=== PATIENT | female | born 2000 | race Caucasian/White ===

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

== ENCOUNTER 2020-01-07 17:40 | Emergency (ER) | payer SELFPAY ==
[2020-01-07 17:41] VITALS: BP 116/72; PULSE 87; RESP 16; TEMP 36.7; O2SAT 99; BMI 27.3
--- NOTE | 2020-01-07 18:40 | RAD_ITS ---
STUDY: X-RAY CHEST REASON FOR EXAM: Female, 19 years old. sob with cough TECHNIQUE: Single AP portable view of the chest. COMPARISON: 08/14/2018. FINDINGS: The lungs are clear and expanded. There is no demonstrated pleural abnormality. Normal size heart. Normal mediastinum and ewa. Normal visualized pulmonary arteries. Normal visualized aortic arch and descending thoracic aorta. Normal visualized thoracic spine. Normal visualized ribs, clavicles, and shoulders. There is no demonstrated abnormality of the visualized soft tissue structures of the upper abdomen. RAD/Chest 1 View (Portable) IMPRESSION: Normal x-ray examination of the chest. Electronically Signed: Chato Horvath MD at 19:55 EDT , Service support ,
--- NOTE | 2020-01-07 18:41 | ED.VIS.DYS ---
History of Present Illness Chief Complaint: Shortness of Breath Informant: Patient Onset: Days - 3 Activity at onset: Exertion Timing: Continuous, Waxes and wanes Quality: Dyspnea on exertion, Wheezing Current Severity: Mild Maximum Severity: Moderate Worsened by: Coughing, Exertion Relieved by: Rest. Not Relieved By: Albuterol Associated Symptoms: Clear sputum, Cough. Negative for: Chills, Fever Chest Pain: Tightness Narrative: Patient has asthma, she feels like she has had URI symptoms, minor amount of clear sputum, some wheezing. Denies any fevers or chills, myalgias, headaches, sore throat, earache. She has had some runny nose and congestion with this. No GI symptoms. Patient presents during the national coronavirus emergency declaration/pandemic. She denies any known contact with anyone infected with COVID-19. She denies traveling out of the immediate area recently. - Past Medical History (1) Asthma Status: Chronic Past Medical History - Allergies and Home Meds Allergies/Adverse Reactions: Allergies ibuprofen [From Advil] Adverse Reaction (Verified 01/07/20 17:44) Swelling Primary Care Physician: Adria Bartlett MD [Primary Care Provider] - Surgical History: no surgical history Smoking Status: Current every day smoker Review of Systems General: Denies: Chills, Fever, Sweats Eyes: Denies: Visual changes - bilaterally, Diplopia ENT: Reports: Rhinorrhea. Denies: Bilateral ear pain, Sore throat Cardiovascular: Denies: Chest pain, Palpitations Respiratory: Reports: Dyspnea, Cough, Sputum, Dyspnea on exertion. Denies: Orthopnea Gastrointestinal: Denies: Abdominal pain, Nausea, Vomiting, Diarrhea, Melena, Hematochezia Genitourinary: Denies: Dysuria, Hematuria, Frequency Musculoskeletal: Denies: Myalgias, Arthralgias, Neck pain, Back pain, Swelling, Extremity Pain Skin: Denies: Rash, Wounds Neurological: Denies: Headache, Weakness, Numbness Physical Exam Vital Signs/Narrative: Vital Signs Temp Pulse Resp BP Pulse Ox 01/07/20 17:41 98.0 F 87 16 116/72 99 Inital Vital Signs reviewed: Yes General: Well nourished, Well developed, No Acute Distress Head: Normocephalic, Atraumatic Eyes: Perrl, EOMI ENT: Moist mucous membranes, No rhinorrhea - No purulent discharge Neck: Supple, Nontender, No lymphadenopathy Cardiovascular: Regular rate, Regular rhythm, No murmurs Respiratory: No distress, CTA bilaterally - But has some mild audible wheezes when listened to externally without stethoscope. No stridor., Chest nontender Abdomen: Soft, Nontender, Nondistended, Normal bowel sounds Back: Nontender, Normal Inspection Extremities: Nontender, No edema. Negative for: Calf Tenderness Skin: Normal color, No rash, No Trauma Neurological: Alert, Oriented x3, Cranial nerves II-XII grossly intact, Normal Strength, Normal Sensation, Normal Gait Psychological: Normal affect, Normal Mood Diagnostic/Tx/Re-eval Chest X-Ray - ED: 1 View, Read by ED Physician, Normal, Heart, Lungs, Mediastinum, Bony Structures, No Acute Disease Treatment - Dyspnea: Steroid - Kenalog 40 mg IM - Medical Decision Making Patient vital signs are normal, her chest x-ray to my interpretation is normal. I sent an outpatient swab for COVID-19, given that she presents during the national coronavirus emergency declaration/pandemic, and since spread has been widespread. She has no specific risk factors for charles it given the history. She is told to quarantine until the results come back. She has albuterol at home to use as needed, hopefully the steroids will help, but I do not think she needs any emergent treatments now. She is comfortable with that plan. ED Disposition - Plan for ED Patient: Disposition: Home or Assisted Living Diagnosis: Viral URI, Asthma exacerbation Instructions: ED REACTIVE AIRWAY DISEASE Adult, ED URI Viral Referrals: Adria Bartlett MD [Primary Care Provider] - 1 Week if not improving Additional Instructions: You were tested for COVID-19, however it is sent to an offsite laboratory, and will likely take 3-5 days to come back. When the results return you should receive a call from the emergency department. Reference the pamphlet including with your discharge papers for information on setting up an online portal account to check the results yourself.
[2020-01-07] MEDS: Triamcinolone Acetonide 40 MG/ML Vial IM (19:52)
[2020-01-07 19:55] VITALS: BP 126/84; PULSE 69; RESP 15; O2SAT 98; O2SAT 99
== END 2020-01-07 19:56 | disposition home or self-care (01) ==
PROVIDERS: Emergency Provider Emergency Medicine; PCP Pediatrics
DX: J06.9 Acute upper respiratory infection, unspecified (principal); J45.901 Unspecified asthma with (acute) exacerbation; F17.200 Nicotine dependence, unspecified, uncomplicated
CPT/HCPCS: 71045; 87635; 94799; 96372; 99282; U0003

== ENCOUNTER 2020-07-24 18:53 | Emergency (ER) | payer MEDICAID, SELFPAY ==
[2020-07-24 18:55] VITALS: BP 125/75; PULSE 98; RESP 16; TEMP 36.9; O2SAT 100; BMI 26.2
--- NOTE | 2020-07-24 20:39 | ED.VIS.BACK ---
History of Present Illness Chief Complaint: Dizziness Informant: Patient Onset: Weeks Context: Sudden Onset Chronic pain exacerbated by: Estimation of prior back pain Injury: Lifting, Twisting, Bending, Repetitive Motion Timing: Continuous Quality: Dull, Aching Location: Thoracic, Lumbar Current Severity: Moderate Maximum Severity: Severe Worsened by: improves with: Movement, Ambulation, Bending, Lifting Relieved by: Nothing Associated Symptoms: - - She denies bowel or bladder dysfunction. She denies saddle paresthesia or anesthesia. She denies radiation to her right or left lower extremity. She denies difficulty walking. She denies knee buckling going up or down steps. Prior similar symptoms: Yes Recent Illness/Hospitalization: No - Past Medical History (1) No significant past medical history Status: Acute (2) Asthma Status: Chronic Past Medical History - Allergies and Home Meds Allergies/Adverse Reactions: Allergies ibuprofen [From Advil] Adverse Reaction (Verified 07/24/20 18:54) Swelling Primary Care Physician: Adria Bartlett MD [Primary Care Provider] - Prior records reviewed: Yes Surgical History: no surgical history Lives: Alone, With Family Smoking Status: Current every day smoker Alcohol: None Drugs: None Review of Systems General: Denies: Chills, Fever, Malaise Eyes: Denies: Blurred vision - left, Blurred Vision - bilaterally ENT: Denies: Rhinorrhea, Sore throat Cardiovascular: Denies: Chest pain, Palpitations Respiratory: Denies: Dyspnea, Cough, Dyspnea on exertion Gastrointestinal: Reports: Nausea. Denies: Abdominal pain, Vomiting, Diarrhea, Constipation, Melena, Hematochezia Genitourinary: Denies: Dysuria, Hematuria, Frequency Musculoskeletal: Reports: Back pain. Denies: Myalgias, Arthralgias, Neck pain, Swelling, Extremity Pain Skin: Reports: - - He has bruises to extremities and lower back and evidence of prior chest trauma. Denies: Rash Neurological: Denies: Headache, Weakness Endocrine: Denies: Polyuria, Polydipsia Hematologic: Denies: Easy bruising, Easy bleeding Physical Exam Vital Signs/Narrative: Vital Signs Temp Pulse Resp BP Pulse Ox 07/24/20 18:55 98.4 F 98 16 125/75 H 100 Inital Vital Signs reviewed: Yes General: Well nourished, Well developed Head: Normocephalic, Atraumatic Eyes: Perrl, EOMI ENT: Moist mucous membranes, No rhinorrhea Neck: Supple, Nontender Cardiovascular: Regular rate, Regular rhythm, No murmurs Respiratory: No distress, CTA bilaterally, Chest nontender Abdomen: Soft, Nontender, Nondistended, Normal bowel sounds Back: Normal Inspection, Nontender, - - Pain the entire spine. Extremeties: Nontender, No edema Skin: Normal color, No rash Neuro: Alert, Oriented, Normal Strength, Normal Sensation, Normal DTR, Normal Gait, - - HL is intact. 5/5 strength with plantar and dorsiflexion of the feet. Hip flexors are intact. Reflexes: Right Patellar, Right Achilles, Left Patellar, Left Achilles, - - Flexes are 1+.. Negative for: Right Clonus, Right Babinski, Left Clonus, Left Babinski Psychological: Normal affect Diagnostic/Tx/Re-eval - Medical Decision Making IV Toradol was ordered. However she reports swelling to ibuprofen. Therefore will treat with p.o. Tylenol. Because of patient's allergies she was treated with Tylenol. She was reassessed at 2230. She had to be awakened from sleep. Her back pain is improved. ED Disposition - Plan for ED Patient: Disposition: Home or Assisted Living Diagnosis: Strain of back Instructions: ED Back Sprain/Strain Referrals: Adira Bartlett MD [Primary Care Provider] - Additional Instructions: 1. Apply ice 20 to 30 minutes per application 6-8 times a day. 2. Because you are allergic to ibuprofen take Tylenol every 4-6 hours.
[2020-07-24] MEDS: Acetaminophen 325 MG Tablet 650 MG PO (20:55)
[2020-07-24 22:47] VITALS: PULSE 72; RESP 16; O2SAT 100
== END 2020-07-24 22:47 | disposition home or self-care (01) ==
PROVIDERS: Emergency Provider Emergency Medicine; PCP Pediatrics
DX: S39.012A Strain of muscle, fascia and tendon of lower back, initial encounter (principal); X50.1XXA Overexertion from prolonged static or awkward postures, initial encounter; Y93.9 Activity, unspecified; Y92.9 Unspecified place or not applicable; J45.909 Unspecified asthma, uncomplicated; F17.200 Nicotine dependence, unspecified, uncomplicated
CPT/HCPCS: 99283

== ENCOUNTER 2020-09-05 22:14 | Emergency (ER) | payer OTHER, MEDICAID, SELFPAY ==
[2020-09-05 22:15] VITALS: BP 147/97; PULSE 104; RESP 16; TEMP 35.7; O2SAT 100; BMI 26.6
--- NOTE | 2020-09-05 22:51 | RAD_ITS ---
STUDY: X-RAY - LEFT SHOULDER REASON FOR EXAM: Female, 20 years old. injury TECHNIQUE: 4 view(s) of the shoulder. COMPARISON: None. FINDINGS: Normal glenohumeral articulation. Normal acromioclavicular joint. Normal acromion. Intact clavicle. Intact scapula Normal humeral head and visualized proximal humerus. The soft tissue structures are unremarkable. Normal visualized pulmonary apex. RAD/Shoulder min 2 Views IMPRESSION: Normal x-ray examination of the shoulder. Electronically Signed: Ciarra Ackerman MD at 23:37 EDT , Service support ,
--- NOTE | 2020-09-05 22:51 | ED.VIS.INJ ---
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 She states as a result she injured her right side/low back. She denies any other injury, but states that she recently just got back to work after recovering from a different injury to her neck and upper back, now she feels like she is having an exacerbation of that same pain as the injury she describes in her left periscapular area. She denies any numbness or tingling or weakness. She was able to walk. She denies hitting her head or losing consciousness. She denies any chest or abdominal pain or shortness of breath. She denies any pleuritic symptoms. She denies any wounds. - Past Medical History (1) Asthma Status: Chronic Past Medical History - Allergies and Home Meds Allergies/Adverse Reactions: Allergies ibuprofen [From Advil] Adverse Reaction (Verified 09/05/20 22:15) Swelling Primary Care Physician: [facility] [GROUP OF PHYSICIANS] - (1-2 days) Adria Bartlett MD [Primary Care Provider] - Surgical History: no surgical history Smoking Status: Current every day smoker Review of Systems General: Denies: Chills, Fever, Sweats Eyes: Denies: Visual changes - bilaterally, Diplopia ENT: Denies: Rhinorrhea, Sore throat Cardiovascular: Denies: Chest pain, Palpitations Respiratory: Denies: Dyspnea, Cough, Dyspnea on exertion Gastrointestinal: Denies: Abdominal pain, Nausea, Vomiting, Diarrhea, Melena, Hematochezia Genitourinary: Denies: Dysuria, Hematuria, Frequency Musculoskeletal: Reports: Back pain. Denies: Neck pain, Swelling, Extremity Pain Skin: Denies: Rash, Wounds Neurological: Denies: Headache, Weakness, Numbness Physical Exam Vital Signs/Narrative: Vital Signs Temp Pulse Resp BP Pulse Ox 09/05/20 22:15 96.3 F L 104 H 16 147/97 H 100 Inital Vital Signs reviewed: Yes General: Well nourished, Well developed, - - well-appearing, nad Head: Normocephalic, Atraumatic Eyes: Perrl, EOMI ENT: TM's clear, No hemotympanum or drainage, No trauma, - - neg Battles bilat. Negative for: Otorrhea, Nasal trauma Neck: Nontender, Full ROM, - - Old contusions nontender Cardiovascular: Regular rate, Regular rhythm, No murmurs. Negative for: Tachycardia Respiratory: No distress, CTA bilaterally - w/ equal BS bilat, Chest nontender Abdomen: Soft, Nontender, Nondistended, Normal bowel sounds Back: Paraspinal Tenderness - right upper lumbar in paraspinal musculature including lower-most short ribs; left medial border of scapula; no other areas of tenderness, no contusions/hematomas or any other wound/sign of objective trauma.. Negative for: Spinal Tenderness Extremeties: Atraumatic with full range of motion throughout all extremities including left shoulder Skin: Normal color, No rash, No Trauma Neurological: Alert, Oriented x3, Cranial nerves II-XII grossly intact, Normal Strength, Normal Sensation, Normal Gait, - - Does not clinically seem intoxicated or under influence of substance Psychological: Normal affect, Normal Mood Diagnostic/Tx/Re-eval Clinical Impression(s) from Imaging Studies Shoulder X-Ray 09/05/20 22:51 IMPRESSION: Normal x-ray examination of the shoulder. Electronically Signed: Ciarra Ackerman MD at 23:37 EDT , Service support , Ribs X-Ray 09/05/20 23:00 IMPRESSION: Normal x-ray examination of the ribs. Electronically Signed: Ciarra Ackerman MD at 23:37 EDT , Service support , - Medical Decision Making On my interpretation, 4 view right rib x-ray series and 4 view left shoulder x-ray series are both negative for any acute injury. Patient has an allergy to ibuprofen, I do not think she has any major injury that needs narcotics so she was given Tylenol and appropriate work restrictions with [facility] follow-up. ED Disposition - Plan for ED Patient: Disposition: Home or Assisted Living Diagnosis: Back contusion Instructions: ED Back Contusion Referrals: Adria Bartlett MD [Primary Care Provider] - [facility] [GROUP OF PHYSICIANS] - (1-2 days) Additional Instructions: Tylenol as needed for pain, may also apply ice to affected areas if needed
[2020-09-05] MEDS: Acetaminophen 500 MG Tablet 1000 MG PO (22:56)
--- NOTE | 2020-09-05 23:00 | RAD_ITS ---
STUDY: X-RAY - UNILATERAL RIBS ( RIGHT ) REASON FOR EXAM: Female, 20 years old. injury TECHNIQUE: 4 view(s) of the ribs. COMPARISON: None. FINDINGS: Normal visualized ribs without a demonstrated fracture. The visualized lung is clear and expanded. RAD/Ribs Unil 2V No CXR IMPRESSION: Normal x-ray examination of the ribs. Electronically Signed: Ciarra Ackerman MD at 23:37 EDT , Service support ,
[2020-09-05 23:46] VITALS: BP 124/87; PULSE 80; RESP 16; TEMP 36.6; O2SAT 98
== END 2020-09-06 00:02 | disposition home or self-care (01) ==
PROVIDERS: Emergency Provider Emergency Medicine; PCP Pediatrics
DX: S30.0XXA Contusion of lower back and pelvis, initial encounter (principal); M25.512 Pain in left shoulder; W31.83XA Contact with special construction vehicle in stationary use, initial encounter; Y92.9 Unspecified place or not applicable; J45.909 Unspecified asthma, uncomplicated; F17.200 Nicotine dependence, unspecified, uncomplicated
CPT/HCPCS: 71100; 73030; 99283

== ENCOUNTER 2020-09-13 16:28 | Emergency (ER) | payer MEDICAID, SELFPAY ==
[2020-09-08 10:28] VITALS: BMI 26.6
[2020-09-13 16:29] VITALS: BP 128/108; PULSE 94; RESP 18; TEMP 36.5; O2SAT 100; BMI 26.6
--- NOTE | 2020-09-13 16:48 | ED.VIS.BACK ---
History of Present Illness Chief Complaint: Back Informant: Patient Onset: Days Context: Sudden Onset Injury: Work Related - States she was seen a week ago. She states this is a work-related injury. Currently was hit by a tow motor. Timing: Continuous Quality: Dull, Aching, - - Very poor informant. Very difficult for her to say nothing specific. Location: Thoracic Current Severity: Pain unable to quantitate Maximum Severity: Severe Worsened by: improves with: Movement, Bending, Lifting Relieved by: Nothing Associated Symptoms: - - Patient denies paresthesia, anesthesia motors. She denies shortness of breath or pleuritic pain. She denies neck pain. She denies headache. Narrative: Chart from prior visit was reviewed. At that time she complained of right low back pain and left scapular pain. She is now complaining of mid bilateral thoracic pain. She states any type of movement makes it worse. She states she follow-up with her primary care doctor states he could not help her and referred her back to the emergency department. She did not follow-up with [facility]. She has no other complaints other than back pain. She states she cannot work. Prior similar symptoms: Yes Recent Illness/Hospitalization: Yes - Past Medical History (1) Asthma Status: Chronic Past Medical History - Allergies and Home Meds Allergies/Adverse Reactions: Allergies ibuprofen [From Advil] Adverse Reaction (Verified 09/13/20 16:28) Swelling Primary Care Physician: Adria Bartlett MD [Primary Care Provider] - Prior records reviewed: Yes Surgical History: no surgical history Lives: Alone Smoking Status: Current every day smoker Alcohol: Rare Drugs: None Review of Systems General: Denies: Chills, Fever, Malaise, Subjective, Sweats Eyes: Denies: Visual changes - bilaterally, Blurred Vision - bilaterally Cardiovascular: Denies: Chest pain, Palpitations Respiratory: Denies: Dyspnea, Dyspnea on exertion Gastrointestinal: Denies: Abdominal pain, Nausea, Vomiting Genitourinary: Denies: Dysuria, Hematuria, Frequency Musculoskeletal: Reports: Back pain. Denies: Myalgias, Arthralgias, Neck pain, Swelling, Extremity Pain Skin: Denies: Rash, Wounds Neurological: Denies: Weakness, Parasthesia, Numbness Hematologic: Denies: Easy bruising, Easy bleeding Physical Exam Vital Signs/Narrative: Vital Signs Temp Pulse Resp BP Pulse Ox 09/13/20 16:29 97.7 F L 94 18 128/108 H 100 Inital Vital Signs reviewed: Yes General: Well nourished, Well developed, Unkempt Head: Normocephalic, Atraumatic Eyes: Perrl, EOMI. Negative for: Pale conjunctiva, Scleral icterus Neck: Supple, Nontender, No lymphadenopathy, No JVD Cardiovascular: Regular rate, Regular rhythm, No murmurs, Normal S1, Normal S2 Respiratory: No distress, CTA bilaterally, Chest nontender Abdomen: Soft, Nontender, Nondistended, Normal bowel sounds, No masses Back: Normal Inspection, Paraspinal Tenderness. Negative for: Nontender, Spinal tenderness Extremeties: Nontender, No edema, Symmetric Skin: Normal color, No rash Neuro: Alert, Oriented, Normal Strength, Normal Sensation, Normal DTR, Normal Gait, Normal Reflexes Psychological: Depressed Diagnostic/Tx/Re-eval - Medical Decision Making Has muscular pain. She was treated with NSAIDs she has no contraindication. [facility] and [facility]. Images were performed on initial visit. Images were reviewed and agree they are negative. ED Disposition - Plan for ED Patient: Disposition: Home or Assisted Living Diagnosis: Dorsal back pain, Strain of thoracic back region Instructions: ED Back Pain (Acute or Chronic) Referrals: Adria Bartlett MD [Primary Care Provider] - [facility] [place] [GROUP OF PHYSICIANS] - Additional Instructions: You are allergic to ibuprofen your options for pain management are Tylenol and ice. Heat may make your pain worse.
== END 2020-09-13 17:04 | disposition home or self-care (01) ==
LOC: ED 17:02
PROVIDERS: Emergency Provider Emergency Medicine; PCP Pediatrics
DX: S29.012A Strain of muscle and tendon of back wall of thorax, initial encounter (principal); X58.XXXA Exposure to other specified factors, initial encounter; Y93.9 Activity, unspecified; Y92.9 Unspecified place or not applicable; J45.909 Unspecified asthma, uncomplicated; F17.200 Nicotine dependence, unspecified, uncomplicated
CPT/HCPCS: 99282

== ENCOUNTER 2020-09-28 16:39 | Emergency (ER) | payer MEDICAID, SELFPAY ==
[2020-09-28 16:40] VITALS: BP 159/114; PULSE 103; RESP 16; TEMP 36.9; O2SAT 99; BMI 26.6
--- NOTE | 2020-09-28 16:57 | ED.VIS.GI ---
HPI HPI - GI History of Present Illness Chief Complaint: GI Bleed Informant: patient Abdominal Pain/Flank Pain Onset: Days (Onset September 26) Context: Sudden Onset Timing: Continuous Quality: Aching Location: - (Anus) Current Severity: Mild Maximum Severity: Severe Worsened by: - (Attempt at bowel movement and touch) Relieved by: Nothing Nausea/Vomiting/Emesis GI Symptom: Negative for Nausea and Vomiting Diarrhea/Melena/Hematochezia GI Symptom: Positive for Hematochezia (Bright red blood with attempted bowel movement and on); Negative for Diarrhea and Melena Onset: Days Stool Quality: Positive for BRB per rectum Severity: Moderate Associated Symptoms Associated Symptoms: Negative for Dysuria, Frequency and Hematuria Narrative Narrative: Is a 20-year-old female who presents with constipation, bright red blood per rectum and rectal pain. She states she has a very tender lump when she wipes. She has noted the blood for 2 to 3 days and the lump for 2 days to 24 hours. Has not had a bowel movement in 3 days. She denies nausea or vomiting. She denies abdominal surgery. She denies history of endometriosis or ovarian cyst. She denies urologic symptoms. She denies ill contacts. She denies fever, chills or night sweats. Prior similar symptoms: Yes Recent Illness/Hospitalization: No PFSH PFSH Medical History (Updated 09/28/20 @ 17:[address] Jim Rivas MD) Shoulder pain Home Medications cyclobenzaprine 10 mg tablet 10 mg PO HS PRN #14 tablet 09/15/20 [Rx Last Taken Unknown] methylprednisolone 4 mg tablets in a dose pack See Rx Instructions PO PER PKG DIR #21 tablet 09/15/20 [Rx Last Taken Unknown] Allergy/AdvReac Type Severity Reaction Status Date / Time ibuprofen [From Advil] AdvReac Swelling Verified 09/15/20 08:10 Family History Mother Asthma Diabetes Father Heart disease Hypertension Thyroid disorder Cancer Social History (Updated 09/22/20 @ 10:23 by Servando VILLALBA, ORLY) Smoking Status: Current every day smoker Tobacco: How many years used: 9 alcohol intake: never ROS ROS ED Constitutional Constitutional ED: Denies chills, fever(s) or subjective ENT ENT ED: Denies ear pain, rhinorrhea or sore throat Cardiovascular Cardiovascular: Denies chest pain or palpitations Respiratory/Chest Respiratory/Chest: Denies cough, dyspnea or dyspnea on exertion Gastrointestinal Gastrointestinal: Reports abdominal pain, constipation and other Details: Bright red blood per rectum ; Denies diarrhea, nausea or vomiting Genitourinary Genitourinary ED: Denies dysuria, hematuria or urinary frequency Musculoskeletal Musculoskeletal: Denies arthralgias, back pain, myalgias or neck pain Integumentary Denies rash Neurologic Neurologic: Denies headache(s) or weakness Endocrine Endocrinology: Denies polydipsia, polyphagia or polyuria Hematologic/Lymphatic Hematologic/Lymphatic: Denies easy bleeding or easy bruising EXAM Physical Exam Const Vital Signs: 09/28/20 16:40 Temperature 98.5 F Temperature Source Temporal Pulse Rate 103 H Respiratory Rate 16 Blood Pressure 159/114 H Blood Pressure Mean 129 Pulse Ox 99 Oxygen Delivery Method Room Air Positive well nourished, well developed and obese General Appearance ED: well developed and NAD Nutritional Appearance: obese HEENT Reports moist mucous membranes normocephalic and atraumatic Eyes PERRL and EOMs intact bilaterally General Eye ED: Negative for pale conjunctiva or scleral icterus Neck no lymphadenopathy, supple and no JVD Resp normal respiratory effort and clear to auscultation bilaterally Cardio regular rhythm, S1 normal heart sound, S2 normal heart sound and no murmurs Rate: tachycardic GI non-tender, non-distended and no masses GI Narrative: Patient has a small thrombosed hemorrhoid with recent bleeding located 5 o'clock lithotomy position. There is a small thrombus noted the size of a BB. Patient reports significant pain with palpation and rectal exam. Material in the rectal vault was brown. There was no bright red blood noted. Auscultation: normoactive bowel sounds Palpation: soft Back/Spine no CVA tenderness Thoracic Spine / Upper Back: Negative for thoracic spinal tenderness Lumbar Spine / Lower Back: Negative for lumbar spinal tenderness Extremity full ROM General Extremety ED: Yes edema General Extremity: edema Neuro CN's II-XII intact bilaterally and no sensory deficits noted Sensorium / Orientation: alert, oriented to person, oriented to place and oriented to time Motor Exam: strength 5/5 throughout Psych mental status grossly normal and thought process normal Skin no wounds General Skin Exam: Negative for jaundice Lesions: no lesions Rashes: no rashes MDM MDM MDM Narrative Medical decision making narrative: Based on patient's history and physical exam she has a small thrombosed hemorrhoid which recently bled. No imaging or testing is indicated. Patient was discharged home with appropriate home-going instructions. Patient was instructed to follow-up with Dr. Bartlett because of elevated blood pressure. Discharge Plan Triage Chief Complaint: GI Bleed ED Provider: Jim Rivas Dx/Rx/DC Orders Clinical Impression: External hemorrhoid, thrombosed, HBP (high blood pressure) Instructions: ED Hemorrhoids Prescriptions: No Action methylprednisolone [Medrol ([place])] 4 mg tablets,dose pack See Rx Instructions PO PER PKG DIR Qty: 21 RF: 0 cyclobenzaprine 10 mg tablet 10 mg PO HS PRN (Reason: muscle spasm) Qty: 14 RF: 0 Primary Care Provider: Adria Bartlett Referrals: Adria Bartlett MD [Primary Care Provider] - 1 Week (Kait had an elevated blood pressure and needs rechecked in 1 week.) Disposition Disposition: Home, self care
[2020-09-28 17:13] VITALS: BP 126/85; PULSE 94; RESP 16; O2SAT 98
== END 2020-09-28 17:20 | disposition home or self-care (01) ==
PROVIDERS: Emergency Provider Emergency Medicine; PCP Pediatrics
DX: K64.5 Perianal venous thrombosis (principal); R03.0 Elevated blood-pressure reading, without diagnosis of hypertension; E66.9 Obesity, unspecified; Z68.26 Body mass index [BMI] 26.0-26.9, adult; F17.200 Nicotine dependence, unspecified, uncomplicated
CPT/HCPCS: 99282

== ENCOUNTER 2020-10-10 20:27 | Emergency (ER) | payer MEDICAID, SELFPAY ==
[2020-10-06 08:02] VITALS: BMI 26.6
[2020-10-10 20:28] VITALS: BP 151/89; PULSE 139; RESP 24; TEMP 36.7; O2SAT 96; BMI 26.6
[2020-10-10] MEDS: Lidocaine/Epi/Tetracaine 50 ML 1 APPLIC TOPICAL (21:17)
--- NOTE | 2020-10-10 22:41 | EX.ED.UPPERE ---
HPI History of Present Illness Chief Complaint: Laceration Informant: patient Occured/Mechanism Mechanism/Context: Yes direct blow Onset/Context/Timing Onset: Today Timing: Continuous Quality of Pain: Sharp Current Severity: Mild Maximum Severity: Mild Associated Symptoms Associated Symptoms: Negative for Parasthesia, Weakness and Loss of Funtion Narrative Narrative: 20-year-old female laceration right small finger palmar aspect after cutting it on glass on a door. Tetanus is up-to-date. Denies other injuries. Tetanus Immunization: 5-10 years Prior similar symptoms: No Recent Illness/Hospitalization: No PFSH PFSH Medical History Acute asthma Bipolar 1 disorder Shoulder pain Home Medications NK 10/10/20 [History Last Taken Unknown] Allergy/AdvReac Type Severity Reaction Status Date / Time ibuprofen [From Advil] AdvReac Swelling Verified 09/15/20 08:10 Family History Mother Asthma Diabetes Father Heart disease Hypertension Thyroid disorder Cancer Social History Smoking Status: Current every day smoker Tobacco: How many years used: 9 alcohol intake: never ROS ROS ED ROS Narrative Patient denies any recent illness. Review of Systems ROS Unobtainable: Denies due to encephalopathy Constitutional Constitutional ED: Denies frequent falls Eyes Eyes: Denies change in vision ENT ENT ED: Denies sore throat Cardiovascular Cardiovascular: Denies chest pain Respiratory/Chest Respiratory/Chest: Denies dyspnea Gastrointestinal Gastrointestinal: Denies abdominal pain Genitourinary Genitourinary ED: Denies dysuria Musculoskeletal Musculoskeletal: Denies myalgias Integumentary Denies rash Neurologic Neurologic: Denies headache(s) Psychiatric Psychiatric: Denies depression Endocrine Endocrinology: Denies polyuria Hematologic/Lymphatic Hematologic/Lymphatic: Denies easy bruising Allergic/Immunologic Allergic/Immunologic ED: Denies urticaria EXAM Physical Exam Narrative Exam Narrative: Young female no acute distress. Vital signs stable. She is tachycardic due to her finger laceration and being anxious. HEENT exam unremarkable. Lungs are clear. Heart tachycardic no murmur. Abdomen soft nontender. Extremities moves all 4. Left hand palmar aspect small finger from the PIP to nearly the tip of her finger there is a long V-shaped flap laceration. Finger is neurovascularly intact. There is no foreign body seen or felt on exam. She is able to flex and extend the finger. She has normal touch sensation. She has normal cap refill. No bony deformity. Normal range of motion of all digits. Const Vital Signs: 10/10/20 20:28 Temperature 98.1 F Temperature Source Temporal Pulse Rate 139 H Respiratory Rate 24 H Blood Pressure 151/89 H Blood Pressure Mean 109 Pulse Ox 96 Oxygen Delivery Method Room Air Positive well nourished and well developed General Appearance ED: well developed HEENT normocephalic and atraumatic Eyes PERRL and EOMs intact bilaterally Neck full ROM and supple Chest Wall inspection of chest normal Resp normal respiratory effort and clear to auscultation bilaterally Cardio regular rhythm and no murmurs Rate: tachycardic GI non-tender, non-distended and no masses Auscultation: normoactive bowel sounds Palpation: soft Back/Spine no CVA tenderness Extremity normal to inspection Extremity Narrative: Left long finger palmar aspect 2 inch flap laceration. Neurovascularly intact. No foreign body. No signs of infection. No bony deformity. Neuro oriented x3 and moves all extremities Sensorium / Orientation: alert Psych Mood & Affect: anxious and tearful Skin Rashes: no rashes Trauma: laceration MDM MDM MDM Narrative Medical decision making narrative: Patient is a flap laceration of her left small finger palmar aspect. Digital block was performed. Area was cleaned with Shur-Clens then copiously irrigated. Discussed with patient and significant other at bedside. They did not but want me to try to tack it down. Clinically I do not think the skin will make at its base any loss its entire blood supply. It was easily removed. Nurses will apply antibiotic ointment and dressed the wound. They were instructed on wound instructions. Her tetanus is up-to-date. Digital block was performed of the left small finger for pain control for better assessment. No repair was attempted after discussing with the patient. [place] x1 here for pain. Procedures Other Procedures Procedure(s): Left small finger digital block for anesthetic. Discharge Plan Triage Chief Complaint: Laceration ED Provider: Jr Ingram Dx/Rx/DC Orders Clinical Impression: Finger laceration Instructions: ED Laceration, Hand: All Closures Prescriptions: No Action NK RF: 0 Primary Care Provider: Adria Bartlett Referrals: Adria Bartlett MD [Primary Care Provider] - 1 Week if not improving Activity Restrictions/Additional Instructions: Keep wound clean. If the dressing stays dry and clean you may need on for next 3 days. Then clean daily with soap and water or peroxide and water. Apply antibiotic ointment and recover. This will take weeks to heal. Any signs of infection such as pus, red streaks, swelling or fever return. Tylenol and Motrin for pain. Ice and elevate. Disposition Disposition: Home, self care
[2020-10-10] MEDS: HYDROcodone Bitartrate/Apap 5/325 Tablet PO (23:01)
[2020-10-10] MEDS: Lidocaine 1% (20 ml mdv) 20 ML Vial 10 ML INFILT (23:03)
[2020-10-10 23:05] VITALS: BP 146/70; PULSE 87; RESP 18
== END 2020-10-10 23:05 | disposition home or self-care (01) ==
PROVIDERS: Emergency Provider Emergency Medicine; PCP Pediatrics
DX: S61.217A Laceration without foreign body of left little finger without damage to nail, initial encounter (principal); W25.XXXA Contact with sharp glass, initial encounter; Y93.9 Activity, unspecified; Y92.9 Unspecified place or not applicable; F31.9 Bipolar disorder, unspecified; J45.909 Unspecified asthma, uncomplicated; F17.200 Nicotine dependence, unspecified, uncomplicated
CPT/HCPCS: 99284

== ENCOUNTER 2020-11-28 16:00 | Outpatient (RCR) | payer MEDICAID, SELFPAY ==
[2020-10-06 08:02] VITALS: BMI 26.6
[2020-10-20 15:20] VITALS: BMI 26.6
--- NOTE | 2020-10-26 17:27 | HP.PTEVAL_ITS ---
Patient's Visit Information DENITA LEMON is a 20 year old F referred to Physical Therapy by ORLY Maxwell with a diagnosis of STRAIN OF MUSCLE AND TENDON OF THORACIC WALL OF THORAX, CONTUSION LOW BACK. Date of Evaluation: 10/26/20 Physical Therapist: Austin Barrera, PT, Cert MDT, OCS - Visit Plan Frequency: 2x /Week Duration: 5WEEKS Plan: PT INTERVETIONS MODALTIES ,THORACIC ROM,THORACIC STRENGTHENING,POSTURAL EX'S ,DLS AND MODALTOES - Subjective This 20 y/o female presents to physical therapy with upper thoracic pain. 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 DOI September 05. Patient had immediate pain went to ER had x-rays -. [facility] did muscle [facility]ers and eventually had PT. Located thoracic middle thoracic spine ache and sharp pain . Denies parathesia/tingling. Coughing/sneezing +. Bowel/bladder -. Pain affects sleeping. No abnormal night pain. Aggravating factors sitting , twisting, bending ,lifting and unable to return to work. Alleviating factors Muscle relaxers. Patient pain affects QOL and function and unable to return to work. SOCAIL: single. VOCATIONS: unemployed - Pain Bilateral Back Pain Intensity (Out of 10): 7 Pain Intensity Range: 10 Comment: thoraci - Objective POSTURE: mild forward posture ,rounded shoulders head forward. NEURO: intact,denies parathesia/tingling. PALPATION: tender thoracic between shoulder blades. AROM: BUE SHOULDER WFL. CERVICAL ROM: WFL. MMT: BUE 4/5 AND SHOULDERS 4-/5 with pain. THORACIC ROM: flexion min loss pain ,extension mod loss pain ,rotation min loss. LUMBAR ROM: WFL. FLEXABLITY: hams mild tight - Goals Goal 1:: Patient to be I with hep Goal Time Frame: 4-6 Weeks Goal 2:: Patient to decrease pain thoracic spine by 50 % or > to improve fun ction Goal Time Frame: 4-6 Weeks Goal 3:: Patient to improve thoracic ROM for function o recovery Goal Time Frame: 4-6 Weeks Goal 4:: Patient improve ability to perform ADL's and job demands with min liniations Goal Time Frame: 4-6 Weeks Goal 5:: Patient improve back owestry score by 5 points or > to improve QOL. Goal Time Frame: 4-6 Weeks - Rehabilitation Potential Physical Therapy Diagnosis: This patient has strain to thoracic region with pain ,decrease thoracic ROM ,tenderness and weakness of thoracic postural muscles thus will benifit from skilled PT Rehabilitation Potential: Good - Anticipated Interventions Patient/Client Instruction: Educate patient on: Condition, Plan of Care For the Purpose of:: To decrease pain, To increase ROM, To improve muscle performance and motor function, To increase tolerance to activity/condition/position, To improve health of tissue, To decrease soft tissue restriction, To increase flexibility/ROM, To reduce risk of recurrence, To prevent re-injury, To improve ability to perform tasks related to life management Therapeutic Exercise to Include: Strength training, Body mechanics, Postural training, Active ROM, Dynamic Lumbar Stabilization, Scapular Strength/Stabilization Comment: THORACIC For the Purpose of:: To decrease pain, To increase ROM, To improve muscle performance and motor function, To improve ability to perform ADL's, To increase tolerance to activity/condition/position, To improve performance and independence with ADL's, To improve ability of physical actions for home/community/work/leisure, To increase flexibility/ROM, To assume or resume ADL's, To reduce risk of recurrence, To improve ability to perform tasks related to life management TENS: Yes IF ES: Yes Cryotherapy (ice pack, ice massage): Yes Thermo therapy (hot pack): Yes Ultrasound (thermal/non thermal): Yes For the Purpose of:: To decrease pain, To increase ROM, To improve health of tissue, To decrease soft tissue restriction Thank you for the opportunity to evaluate your patient. For Medicare and Medicare HMO plans, please review the plan of care and approve it. It will need to be FAXED BACK to us at [phone] for Medicare purposes. For Medicare only, by signing this I certify the plan of care. Please let me know if there are questions or concerns regarding this plan of care. Physician Signature: Date:
--- NOTE | 2021-01-25 13:57 | HP.PT.NRP ---
DENITA LEMON was seen in my office for initial evaluation on 10/26/20. The following Plan of Care was established for this patient: Initial Frequency: 2x /Week Initial Duration: 5WEEKS Patient/Client Instruction: Educate patient on: Condition, Plan of Care For the Purpose of:: To decrease pain, To increase ROM, To improve muscle performance and motor function, To increase tolerance to activity/condition/position, To improve health of tissue, To decrease soft tissue restriction, To increase flexibility/ROM, To reduce risk of recurrence, To prevent re-injury, To improve ability to perform tasks related to life management Therapeutic Exercise to Include: Strength training, Body mechanics, Postural training, Active ROM, Dynamic Lumbar Stabilization, Scapular Strength/Stabilization For the Purpose of:: To decrease pain, To increase ROM, To improve muscle performance and motor function, To improve ability to perform ADL's, To increase tolerance to activity/condition/position, To improve performance and independence with ADL's, To improve ability of physical actions for home/community/work/leisure, To increase flexibility/ROM, To assume or resume ADL's, To reduce risk of recurrence, To improve ability to perform tasks related to life management TENS: Yes IF ES: Yes Cryotherapy (ice pack, ice massage): Yes Thermo therapy (hot pack): Yes Ultrasound (thermal/non thermal): Yes For the Purpose of:: To decrease pain, To increase ROM, To improve health of tissue, To decrease soft tissue restriction This patient was last seen in our office . Pertinent comments regarding their Physical therapy will appear below: Patient seen for back pain for postural ex's , and DLS doing better thus d/c At this point I will be discontinuing this patient from physical therapy. I would be happy to see this patient again in the future if found appropriate by the physician. Thank you! Austin Barrera, PT, Cert MDT, OCS Balance/Gait/Functional tests - Balance/Special Test Scores Oswestry Low Back Score: 3
== END 2020-11-28 19:00 | disposition home or self-care (01) ==
LOC: PT 16:00
PROVIDERS: PCP Pediatrics; Referring Provider Physician Assistant; Visit Provider Physician Assistant
DX: S29.019D Strain of muscle and tendon of unspecified wall of thorax, subsequent encounter (principal); S30.0XXD Contusion of lower back and pelvis, subsequent encounter; X58.XXXD Exposure to other specified factors, subsequent encounter
CPT/HCPCS: 97014; 97110; 97162; G0283

== ENCOUNTER 2021-03-05 12:37 | Emergency (ER) | payer MEDICAID, SELFPAY ==
[2021-03-05 12:38] VITALS: BP 124/79; PULSE 95; RESP 16; TEMP 36.9; O2SAT 98; BMI 26.2
--- NOTE | 2021-03-05 13:19 | EDS_ITS ---
HPI History of Present Illness Chief Complaint: Shortness of Breath Detail of Chief Complaint: Rib pain Informant: patient Onset/Context/Timing Current Severity: Mild Maximum Severity: Moderate Narrative Narrative: Patient presents secondary to rib pain. Yesterday she had an episode where she became very short of breath with chest tightness, rib pain. She felt lightheaded and dizzy. She does state that she was breathing very fast at the time. Episode lasted approximately 45 minutes to an hour. Following this she has felt very weak and drained. She believes the episode was triggered by her mom blaming her for her kidney disease. She told her mom today about how she felt and was encouraged to come to the emergency room. Patient states today she only has rib pain when she takes a deep breath. She does admit to being very depressed recently. She denies suicidal ideation. She was asked multiple times if she would like to speak with a counselor and she declines. [facility] Medical History Acute asthma Bipolar 1 disorder Shoulder pain Home Medications NK 03/05/21 [History Last Taken Unknown] Allergy/AdvReac Type Severity Reaction Status Date / Time ibuprofen [From Advil] AdvReac Swelling Verified 03/05/21 12:37 Family History Mother Asthma Diabetes Father Heart disease Hypertension Thyroid disorder Cancer Social History Smoking Status: Current every day smoker Tobacco: How many years used: 9 alcohol intake: never ROS ROS ED Constitutional Constitutional ED: Denies chills or fever(s) Eyes Eyes: Denies change in vision ENT ENT ED: Denies sore throat Cardiovascular Cardiovascular: Reports other Details: Rib pain ; Denies chest pain Respiratory/Chest Respiratory/Chest: Denies cough or dyspnea Gastrointestinal Gastrointestinal: Denies abdominal pain, diarrhea, nausea or vomiting Genitourinary Genitourinary ED: Denies dysuria Musculoskeletal Musculoskeletal: Denies back pain Integumentary Denies rash Neurologic Neurologic: Denies headache(s) or weakness Psychiatric Psychiatric: Reports depression; Denies anxiety, suicidal ideation or suicidal thoughts Allergic/Immunologic Allergic/Immunologic ED: Denies urticaria EXAM Physical Exam Const Vital Signs: 03/05/21 12:38 Temperature 98.4 F Temperature Source Temporal Pulse Rate 95 Respiratory Rate 16 Blood Pressure 124/79 H Blood Pressure Mean 94 Pulse Ox 98 Oxygen Delivery Method Room Air Positive well nourished and well developed General Appearance ED: well developed Neck supple Chest Wall inspection of chest normal Chest Narrative: Mild rib tenderness in the right lateral posterior ribs and left anterior ribs. Resp normal respiratory effort and clear to auscultation bilaterally Cardio regular rate and regular rhythm GI normal to inspection, nondistended, normoactive bowel sounds and non-tender Palpation: soft Extremity normal to inspection Neuro oriented x3 Sensorium / Orientation: alert Psych Mood & Affect: depressed Skin no rashes or lesions noted MDM MDM MDM Narrative Medical decision making narrative: Rib series with chest x-ray obtained. Treatment and Re-Evaluation Comments:: X-rays per my interpretation shows no acute abnormalities. Patient is advised of the findings. She states that she is scheduled to see the counseling center in April. I will pass along her information to them to see if they can move her appointment any sooner. Patient again declines wanting to speak with a counselor at this time. Discharge Plan Triage Chief Complaint: Shortness of Breath ED Provider: Martha Aparicio Dx/Rx/DC Orders Clinical Impression: Panic attack Instructions: ED Panic Attack Prescriptions: No Action NK RF: 0 Primary Care Provider: Adria Bartlett Referrals: Counseling,Center [GROUP OF PHYSICIANS] - As soon as possible Adria Bartlett MD [Primary Care Provider] - Disposition Disposition: Home, Self Care
--- NOTE | 2021-03-05 13:25 | RAD_ITS ---
STUDY: X-RAY - BILATERAL RIBS WITH CHEST REASON FOR EXAM: Female, 20 years old. pain TECHNIQUE - RIBS: 6 view(s) of the ribs. TECHNIQUE - CHEST: Single PA view of the chest. COMPARISON: 01/07/2020 FINDINGS - RIBS : Normal visualized ribs without a demonstrated fracture. FINDINGS - CHEST: The lungs are clear and expanded. There is no demonstrated pleural abnormality. Normal size heart. Normal mediastinum and ewa. Normal visualized pulmonary arteries. Normal visualized aortic arch and descending thoracic aorta. Normal visualized thoracic spine. Normal visualized ribs, clavicles, and shoulders. There is no demonstrated abnormality of the visualized soft tissue structures of the upper abdomen. RAD/Ribs Jake Min 4V w/PA Chest IMPRESSION: RIBS: Normal x-ray examination of the bilateral ribs. CHEST: Normal x-ray examination of the chest. Electronically Signed: Marcin Appiah MD at 14:34 EDT Tel , Service support ,
== END 2021-03-05 13:52 | disposition home or self-care (01) ==
PROVIDERS: Emergency Provider Emergency Medicine; PCP Pediatrics
DX: F41.0 Panic disorder [episodic paroxysmal anxiety] (principal); R07.81 Pleurodynia; F31.9 Bipolar disorder, unspecified; J45.909 Unspecified asthma, uncomplicated; F17.200 Nicotine dependence, unspecified, uncomplicated
CPT/HCPCS: 71111; 99282

== ENCOUNTER 2021-06-30 12:09 | Emergency (ER) | payer MEDICAID, SELFPAY ==
[2021-06-30 12:10] VITALS: BP 139/82; PULSE 88; RESP 16; TEMP 36.1; O2SAT 100; BMI 26.6
--- NOTE | 2021-06-30 12:28 | CT_ITS ---
STUDY: CT ABDOMEN AND PELVIS WITH CONTRAST REASON FOR EXAM: Female, 21 years old. Abd pain -- IV PO Contrast, right abd pain, mother has crohn. GI bleed. RADIATION DOSAGE (If Supplied By Facility): CTDIvol = ( 14.42 ) mGy, DLP = ( 942.15 ) mGycm TECHNIQUE: Transaxial images were obtained from the dome of the diaphragm to the symphysis pubis with oral contrast. Oral and amp; IV Gastrografin and amp; 100mL Isovue-300 was administered. Sagittal and coronal images were reconstructed. Individualized dose optimization techniques were used for this CT. COMPARISON: None. FINDINGS: The visualized lung bases are unremarkable. The visualized portions of the heart are within normal limits. Normal liver. Normal gallbladder and extrahepatic biliary system. Normal spleen. Normal pancreas. Normal bilateral adrenal glands. Normal right kidney. Normal left kidney. Incidental note is made of a left retroaortic renal vein. Normal visualized stomach. Normal small intestine. There is evidence of circumferential wall thickening and the heterogeneous appearance of the ascending colon and hepatic flexure. This may represent colitis. The appendix is visualized and appears normal. Normal abdominal aorta. Normal inferior vena cava. Normal retroperitoneum. Normal urinary bladder. Small follicles are seen in both ovaries. Normal abdominal wall. Normal osseous structures. Minimal levoscoliosis. CT/Abdomen/Pelvis WITH Contrast IMPRESSION: Findings suggestive of colitis involving the descending colon and hepatic flexure. Electronically Signed: Jairo Wallace MD at 14:16 EST ,
--- NOTE | 2021-06-30 12:38 | ED.VIS.GI ---
HPI HPI - GI History of Present Illness Chief Complaint: GI Bleed Informant: patient Narrative Narrative: Patient reports blood in her stools 7 AM this morning had couple other episodes with bright red to dark red blood. 2 hours ago noted right side abdominal pain. No fevers. No vomiting or diarrhea. No urinary symptoms. Reports mother has history of Crohn's disease. She has not been tested in the past. She does not take anticoagulation medications. States yesterday stools were hard and she was bearing down. Reports history of hemorrhoids x1 in the past. Prior similar symptoms: No PFSH PFSH Medical History Acute asthma Anxiety Bipolar 1 disorder Depression PTSD (post-traumatic stress disorder) Shoulder pain Smoker Home Medications prednisone 40 mg PO DAILY #26 tab 06/30/21 [Rx Last Taken Unknown] Allergy/AdvReac Type Severity Reaction Status Date / Time ibuprofen [From Advil] AdvReac Swelling Verified 06/30/21 12:11 Family History Mother Asthma Diabetes Father Heart disease Hypertension Thyroid disorder Cancer Social History Smoking Status: Current every day smoker tobacco type: cigarettes Tobacco: How many years used: 9 alcohol intake: never ROS ROS ED Constitutional Constitutional ED: Denies chills, fever(s) or sweats Eyes Eyes: Denies change in vision ENT ENT ED: Denies dysphagia or sore throat Cardiovascular Cardiovascular: Denies chest pain, leg edema, palpitations or racing heartbeat Respiratory/Chest Respiratory/Chest: Denies cough, dyspnea or dyspnea on exertion Gastrointestinal Gastrointestinal: Reports abdominal pain and other Details: Blood in stool ; Denies diarrhea, nausea or vomiting Genitourinary Genitourinary ED: Denies dysuria, hematuria or urinary frequency Musculoskeletal Musculoskeletal: Denies back pain, extremity pain or neck pain Integumentary Denies rash or wounds Neurologic Neurologic: Denies headache(s), paresthesias or weakness EXAM Physical Exam Const Vital Signs: 06/30/21 12:10 06/30/21 14:41 Temperature 96.9 F L Temperature Source Temporal Pulse Rate 88 78 Respiratory Rate 16 15 Blood Pressure 139/82 H 123/86 H Blood Pressure Mean 101 98 Pulse Ox 100 98 Oxygen Delivery Method Room Air Room Air Positive well nourished and well developed General Appearance ED: well developed and NAD HEENT Reports moist mucous membranes normocephalic and atraumatic Eyes PERRL, EOMs intact bilaterally and conjunctivae normal General Eye ED: Yes normal appearance of both eyes Neck no lymphadenopathy and supple General: Negative for tenderness Chest Wall Chest: Negative for tenderness Resp normal respiratory effort and normal air movement Effort and Inspection: symmetric chest movement; Negative for respiratory distress Cardio regular rate, regular rhythm and no murmurs Peripheral Pulses: pulses 2+ throughout GI normal to inspection, nondistended, normoactive bowel sounds GI Narrative: Right side abdominal tenderness without guarding or rebound. Negative Cheema's or McBurney's tenderness. Palpation: Negative for guarding or rebound tenderness present Back/Spine no CVA tenderness and no thoracic nor lumbar tenderness Extremity normal to inspection General Extremety ED: Negative for edema or tenderness General Extremity: Negative for edema Neuro oriented x3 and no sensory deficits noted Sensorium / Orientation: awake and alert Skin no rashes or lesions noted and no wounds MDM MDM MDM Narrative Medical decision making narrative: Patient tender right side of abdomen. Vital signs stable. I did check labs white count 8.1 hemoglobin 14.1 liver and lipase normal negative. With mother having Crohn's history I did obtain a contrast CT results noting colitis involving the hepatic flexure and ascending colon. I discussed with GI Dr. Friend, will do steroids for 2 weeks, will have her seen in the outpatient office in 1 week for further work-up as an outpatient. Lab Data Attestation: I reviewed the patient's lab results. Labs: Laboratory Results - last 24 hr 06/30/21 06/30/21 06/30/21 12:38 12:38 12:38 WBC 8.1 RBC 4.83 Hgb 14.1 Hct 43.3 MCV 89.6 MCH 29.2 MCHC 32.6 RDW Std Deviation 41.1 RDW Coeff of Mervat 12.4 Plt Count 283 MPV 11.0 Immature Gran % (Auto) 0.100 Neut % (Auto) 65.4 Lymph % (Auto) 27.4 [place] % (Auto) 4.6 Eos % (Auto) 1.6 Baso % (Auto) 0.9 Absolute Neuts (auto) 5.3 Absolute Lymphs (auto) 2.22 Nucleated RBC % 0 Sodium 137 Potassium 3.8 Chloride 106 Carbon Dioxide 28.0 Anion Gap 3 L BUN 10 Creatinine 0.70 Estim Creat Clear Calc 132.86 Est GFR (MDRD) Af Amer 135 Est GFR (MDRD) Non-Af 112 BUN/Creatinine Ratio 14.2 Glucose 86 Calcium 9.4 Total Bilirubin 0.40 AST 17 ALT 20 Alkaline Phosphatase 68 Total Protein 8.4 H Albumin 3.9 Globulin 4.5 H Albumin/Globulin Ratio 0.9 Lipase 202 Serum , Qual NEGATIVE Radiography Diagnostic Testing: Clinical Impression(s) from Imaging Studies Abdomen/Pelvis CT 06/30/21 12:28 IMPRESSION: Findings suggestive of colitis involving the descending colon and hepatic flexure. Electronically Signed: Jairo Wallace MD at 14:16 EST , Discharge Plan Triage Chief Complaint: GI Bleed ED Provider: Eric Edmond Dx/Rx/DC Orders Clinical Impression: Colitis, Abdominal pain, Rectal bleed Instructions: ED Understanding Colitis Prescriptions: New prednisone 20 mg tablet 40 mg PO DAILY Qty: 26 RF: 0 Primary Care Provider: Adria Bartlett Referrals: Jason Parish DO [STAFF PHYSICIAN] - 1 Week Adria Bartlett MD [Primary Care Provider] - Activity Restrictions/Additional Instructions: Colitis seen on your hepatic flexure colon and descending colon. Hemoglobin stable. Take steroid as prescribed follow-up with Dr. Parish in 1 week. Disposition Disposition: Home, Self Care Discharge Date/Time: 06/30/21 14:52
[2021-06-30] MEDS: 0.9% Normal Saline 1,000 ML 125 ML IV (12:45)
[2021-06-30 12:56] LABS: Absolute Lymphocyte Count 2.22 X10^3/uL (0.83-4.51); Absolute Neutrophil Count 5.3 X10^3/uL (2.0-7.7); Basophil# 0.07 X10^3/uL; Basophil% 0.9 % (0-1); Eosinophil# 0.13 X10^3/uL; Eosinophils% 1.6 % (0-5); Hematocrit 43.3 % (37-47); Hemoglobin 14.1 g/dL (12.0-15.0); Internal QC Validated? YES +Cl - CLEAR BKGD; Lymphocyte # 2.22 X10^3/ul (0.83-4.51); Lymphocyte % 27.4 % (19-41); Mean Corp Hgb Conc 32.6 g/dL (32-36); Mean Corpuscular Hgb 29.2 pg (27.0-32.0); Mean Corpuscular Volume 89.6 fL (81-99); Monocyte# 0.37 X10^3/uL; Monocyte% 4.6 % (0-10); NRBC Flagged by Analyzer 0 % (0-5); Neutrophil % 65.4 % (47-70); Platelet Count 283 K/mm3 (150-450); Pregnancy, Serum, hCG Quali. NEGATIVE Negative; RBC Distribution Width CV 12.4 % (11.6-14.6); RBC Distribution Width SD 41.1 fl (35.1-43.9); Red Blood Count 4.83 M/mm3 (4.2-5.4); White Blood Count 8.1 K/mm3 (4.4-11.0)
[2021-06-30 13:05] LABS: ALB/GLOB Ratio 0.9 RATIO (0.9-2.4); AST(SGOT) 17 U/L (15-37); Alanine Aminotransfer ALT/SGPT 20 U/L (13-56); Albumin, Serum 3.9 g/dL (3.2-5.0); Alkaline Phosphatase 68 U/L (45-117); Anion Gap 3 (5-15); BUN 10 mg/dL (7-18); BUN/Creat Ratio 14.2 RATIO (10-20); Calcium,Total 9.4 mg/dL (8.5-10.1); Chloride 106 mmol/L (98-107); EST Glomerular Filtration Rate 112 mL/min (>60); Est Glom Filt Rate - Afr Amer 135 mL/min (>60); Estimated Creatinine Clearance 132.86 ml/min; Globulin 4.5 g/dL (2.2-4.2); Glucose 86 mg/dL (74-106); Lipase 202 U/L (73-393); Potassium 3.8 mmol/L (3.5-5.1); Protein, Total 8.4 g/dL (6.4-8.2); Sodium Level 137 mmol/L (136-145)
[2021-06-30 14:41] VITALS: BP 123/86; PULSE 78; RESP 15; O2SAT 98
[2021-06-30] MEDS: predniSONE 20 MG Tablet 40 MG PO (14:49)
== END 2021-06-30 14:52 | disposition home or self-care (01) ==
PROVIDERS: Emergency Provider Emergency Medicine; PCP Pediatrics; Visit Provider Emergency Medicine
DX: K52.9 Noninfective gastroenteritis and colitis, unspecified (principal); F31.9 Bipolar disorder, unspecified; J45.909 Unspecified asthma, uncomplicated; F43.10 Post-traumatic stress disorder, unspecified; F17.210 Nicotine dependence, cigarettes, uncomplicated
CPT/HCPCS: 74177; 80053; 83690; 84703; 85025; 96360; 96361; 99283; J7030; Q9967; A4216

== ENCOUNTER 2021-08-14 19:34 | Emergency (ER) | payer MEDICAID, SELFPAY ==
[2021-08-14 19:35] VITALS: BP 173/97; PULSE 89; RESP 18; TEMP 36.1; O2SAT 100; BMI 26.6
[2021-08-14 20:05] VITALS: BP 124/86; PULSE 66; RESP 16; O2SAT 98
--- NOTE | 2021-08-14 20:09 | CM.ED ---
P[facility] Note Referral Source: Case Find Referral Reason: Patient is 21 and her pediatrican is listed as PCP [facility] met with shirat. Patient said that Dr. Bartlett continues to be her doctor even at age 21 and doesn't drop you. [facility] provided patient with resources that included Healthcare Provider Directory and Where to Go and When Handout. No concerns or issues voiced. PACHECO remains available. Plan: Resources Ciarra DURAN
--- NOTE | 2021-08-14 20:36 | CT_ITS ---
INDICATION: abd pain EXAMINATION: CT ABDOMEN AND PELVIS WITH CONTRAST - CT Abdomen And Pelvis W/ Contrast Injection TECHNIQUE: Helically acquired images were obtained of the abdomen and pelvis following IV contrast. A radiation dose optimization technique was used for this scan. IV Contrast dosage and agent: 100 mL of [id number] Oral contrast: None. COMPARISON: None. FINDINGS: LOWER CHEST: Lung bases are clear. No cardiomegaly or pericardial effusion. LIVER: Small area of focal fatty infiltration in the anterior periphery of segment 4 of the liver. Normal hepatic size and contour. No focal mass. GALLBLADDER AND BILIARY TREE: No calcified gallstones. No gallbladder distension or wall edema. No intra- or extrahepatic biliary ductal dilation. PANCREAS: No focal cystic or solid mass. SPLEEN: Normal size without focal cystic or solid mass. ADRENAL GLANDS: No nodules. KIDNEYS, URETERS and BLADDER: Normal renal size and position. No mass. No hydronephrosis. Bladder is unremarkable. PERITONEUM: No ascites or free air. No other fluid collection. BOWEL: No evidence of acute appendicitis. No abnormally distended bowel loops or air fluid levels. No wall thickening or mass. No focal inflammatory changes. LYMPH NODES: No enlarged mesenteric or retroperitoneal lymph nodes. VESSELS: Aorta is non-dilated. REPRODUCTIVE ORGANS: Within normal limits of the exam. Left adnexal 2.4 x 4.0 cm hypodensity suggesting ovarian cyst. Note of a vaginal tampon. ABDOMINAL WALL: No discrete abdominal or pelvic wall hernia. BONES: No lytic or blastic abnormality. CT/Abdomen/Pelvis W IV Cont ONLY IMPRESSION: No acute intra-abdominal pathology. Note of 2.4 x 4.0 cm left adnexal cystic lesion likely representing ovarian cyst or dominant follicle. Small area of decreased density in the periphery of segment 4 of the liver highly suggestive of focal fatty infiltration. Electronically Signed: Jonny Okeefe DO at 22:15 EDT ,
--- NOTE | 2021-08-14 20:38 | EDS_ITS ---
HPI History of Present Illness Chief Complaint: Abd Pain Informant: patient Narrative Narrative: Patient presents with continued abdominal symptoms. She was seen here about a month and a half ago for some abdominal pain. They found that she had inflammation of her ascending colon. She was placed on a couple weeks of prednisone. This did help but the symptoms have progressively come back. She was referred to see gastroenterology. However, the phone used with her mother is that she did have a phone. The office called back while her mother was sleeping during the day as the mother works third shift. She therefore missed the call. She has recontacted them and given them a new number to contact her through. However, she states in the last for 5 days she has had more abdominal pain. She is able to eat and drink and has no nausea and vomiting. At first she told me she has had no bowel movement at all for 4 days. When I dive into this more I find out she has had some watery diarrhea but a small amount. No blood has been seen. She describes the pain is epigastric and not down on the right side where she had inflammatory changes. There is a family history of Crohn's in her father side. This patient has had no abdominal surgeries. Last menstrual period was starting now but are chronically irregular. Eating does tend to make her symptoms worse. Nothing makes them better other than the prednisone. PFSH PFSH Medical History Acute asthma Anxiety Bipolar 1 disorder Depression PTSD (post-traumatic stress disorder) Shoulder pain Smoker Home Medications omeprazole 20 mg PO DAILY #30 cap 08/14/21 [Rx Last Taken Unknown] ondansetron 4 mg PO Q8H PRN #10 tab 08/14/21 [Rx Last Taken Unknown] Allergy/AdvReac Type Severity Reaction Status Date / Time ibuprofen [From Advil] AdvReac Swelling Verified 08/14/21 19:38 Family History Mother Asthma Diabetes Father Heart disease Hypertension Thyroid disorder Cancer Social History Smoking Status: Current every day smoker tobacco type: cigarettes Tobacco: How many years used: 9 alcohol intake: never ROS ROS ED Constitutional Constitutional ED: Denies chills, fever(s) or subjective ENT ENT ED: Denies rhinorrhea or sore throat Cardiovascular Cardiovascular: Denies chest pain or palpitations Respiratory/Chest Respiratory/Chest: Denies cough, dyspnea or sputum Gastrointestinal Gastrointestinal: Reports abdominal pain and diarrhea; Denies constipation, melena, nausea or vomiting Genitourinary Genitourinary ED: Denies dysuria, hematuria or urinary frequency Musculoskeletal Musculoskeletal: Denies back pain Integumentary Denies rash Neurologic Neurologic: Denies headache(s) or weakness Psychiatric Psychiatric: Reports anxiety and depression Endocrine Endocrinology: Denies polydipsia or polyuria Allergic/Immunologic Allergic/Immunologic ED: Denies urticaria EXAM Physical Exam Const Vital Signs: 08/14/21 19:35 08/14/21 20:05 08/14/21 22:20 Temperature 97 F L 98.1 F Temperature Source Temporal Oral Pulse Rate 89 66 64 Respiratory Rate 18 16 18 Blood Pressure 173/97 H 124/86 H 127/80 H Blood Pressure Mean 122 98 95 Pulse Ox 100 98 100 Oxygen Delivery Method Room Air Room Air Room Air Positive well nourished and well developed; Negative for unkempt General Appearance ED: well developed and NAD; Negative for unkempt, cyanotic or diaphoretic HEENT Reports moist mucous membranes Eyes General Eye ED: Negative for pale conjunctiva or scleral icterus Neck no JVD Chest Wall inspection of chest normal Resp normal respiratory effort and clear to auscultation bilaterally Effort and Inspection: Negative for pain with movement Cardio regular rate and regular rhythm GI normal to inspection, nondistended, normoactive bowel sounds GI Narrative: Patient does have some mild epigastric to left upper quadrant tenderness. There is no right upper quadrant tenderness. No pain in the lower abdomen at all. No rebound or guarding anywhere. There is no hernia that is felt. No rashes. She does have some lower abdominal stretch murray. Palpation: soft Back/Spine no CVA tenderness Extremity normal to inspection General Extremety ED: Negative for edema or tenderness General Extremity: Negative for edema Neuro Sensorium / Orientation: alert Psych mental status grossly normal Appearance: Negative for unkempt Skin no rashes or lesions noted MDM MDM MDM Narrative Medical decision making narrative: Patient's blood work showed normal CBC other than hemoglobin slightly high. This might be due to not drinking as much fluids. However, her electrolytes are overall good. Liver function test are normal. is negative. Urine shows no acute process. CT scan also did not show the changes from before. Patient evidently had pain toward the right at her last visit but it is gone and her CT is improved. She now has epigastric discomfort. This might be GERD or dyspepsia. We will get her on PPI and I still recommend follow-up with gastroenterology. I do not think further steroids are necessary. She may still need evaluation for Crohn's because of her symptoms, prior CT scan and family history. Lab Data Attestation: I reviewed the patient's lab results. Labs: Laboratory Results - last 24 hr 08/14/21 08/14/21 08/14/21 20:45 20:45 20:45 WBC 8.3 RBC 5.25 Hgb 15.8 H Hct 46.2 MCV 88.0 MCH 30.1 MCHC 34.2 RDW Std Deviation 38.5 RDW Coeff of Mervat 11.9 Plt Count 261 MPV 11.0 Immature Gran % (Auto) 0.200 Neut % (Auto) 67.5 Lymph % (Auto) 22.4 [place] % (Auto) 8.0 Eos % (Auto) 1.1 Baso % (Auto) 0.8 Absolute Neuts (auto) 5.6 Absolute Lymphs (auto) 1.85 Nucleated RBC % 0 Sodium 141 Potassium 4.0 Chloride 110 H Carbon Dioxide 28.0 Anion Gap 3 L BUN 8 Creatinine 0.83 Estim Creat Clear Calc 112.05 Est GFR (MDRD) Af Amer 111 Est GFR (MDRD) Non-Af 92 BUN/Creatinine Ratio 9.7 L Glucose 78 Calcium 9.7 Total Bilirubin 0.40 AST 17 ALT 20 Alkaline Phosphatase 65 Total Protein 8.1 Albumin 4.1 Globulin 4.0 Albumin/Globulin Ratio 1.0 Serum , Qual NEGATIVE Urine Color Urine Clarity Urine pH Ur Specific [place] Urine Protein Urine Glucose (UA) Urine Ketones Urine Occult Blood Urine Nitrite Urine Bilirubin Urine Urobilinogen Ur Leukocyte Esterase Urine RBC Urine WBC Ur Squamous Epith Cells Urine Bacteria Urine Mucus 08/14/21 22:00 WBC RBC Hgb Hct MCV MCH MCHC RDW Std Deviation RDW Coeff of Mervat Plt Count MPV Immature Gran % (Auto) Neut % (Auto) Lymph % (Auto) [place] % (Auto) Eos % (Auto) Baso % (Auto) Absolute Neuts (auto) Absolute Lymphs (auto) Nucleated RBC % Sodium Potassium Chloride Carbon Dioxide Anion Gap BUN Creatinine Estim Creat Clear Calc Est GFR (MDRD) Af Amer Est GFR (MDRD) Non-Af BUN/Creatinine Ratio Glucose Calcium Total Bilirubin AST ALT Alkaline Phosphatase Total Protein Albumin Globulin Albumin/Globulin Ratio Serum , Qual Urine Color Yellow Urine Clarity Clear Urine pH 8.0 Ur Specific [place] 1.010 Urine Protein Negative Urine Glucose (UA) Normal Urine Ketones Negative Urine Occult Blood Negative Urine Nitrite Negative Urine Bilirubin Negative Urine Urobilinogen Normal Ur Leukocyte Esterase 25 H Urine RBC 0 SEEN Urine WBC 0 SEEN Ur Squamous Epith Cells 0-5 SEEN Urine Bacteria 0 SEEN Urine Mucus 0 SEEN Radiography Diagnostic Testing: Clinical Impression(s) from Imaging Studies Abdomen/Pelvis CT 08/14/21 20:36 IMPRESSION: No acute intra-abdominal pathology. Note of 2.4 x 4.0 cm left adnexal cystic lesion likely representing ovarian cyst or dominant follicle. Small area of decreased density in the periphery of segment 4 of the liver highly suggestive of focal fatty infiltration. Electronically Signed: Jonny Okeefe DO at 22:15 EDT , Discharge Plan Triage Chief Complaint: Abd Pain ED Provider: Farhan Ramirez Dx/Rx/DC Orders Clinical Impression: Acute epigastric pain Instructions: ED Abdominal Pain Unkn Cause Fem, ED PEPTIC ULCER vs GASTRITIS Prescriptions: New omeprazole [omeprazole] 20 MG capsule 20 mg PO DAILY Qty: 30 RF: 0 ondansetron 4 mg tablet,disintegrating 4 mg PO Q8H PRN (Reason: nausea and vomiting) Qty: 10 RF: 0 Primary Care Provider: Adria Bartlett Referrals: Jason Parish DO [STAFF PHYSICIAN] - As soon as possible Adria Bartlett MD [Primary Care Provider] - Disposition Disposition: Home, Self Care
[2021-08-14 20:49] LABS: Absolute Lymphocyte Count 1.85 X10^3/uL (0.83-4.51); Absolute Neutrophil Count 5.6 X10^3/uL (2.0-7.7); Basophil# 0.07 X10^3/uL; Basophil% 0.8 % (0-1); Eosinophil# 0.09 X10^3/uL; Eosinophils% 1.1 % (0-5); Hematocrit 46.2 % (37-47); Hemoglobin 15.8 g/dL (12.0-15.0); Lymphocyte # 1.85 X10^3/ul (0.83-4.51); Lymphocyte % 22.4 % (19-41); Mean Corp Hgb Conc 34.2 g/dL (32-36); Mean Corpuscular Hgb 30.1 pg (27.0-32.0); Monocyte# 0.66 X10^3/uL; NRBC Flagged by Analyzer 0 % (0-5); Neutrophil # 5.56 X10^3/uL (2.7-7.7); Neutrophil % 67.5 % (47-70); Platelet Count 261 K/mm3 (150-450); RBC Distribution Width CV 11.9 % (11.6-14.6); RBC Distribution Width SD 38.5 fl (35.1-43.9); Red Blood Count 5.25 M/mm3 (4.2-5.4); White Blood Count 8.3 K/mm3 (4.4-11.0)
[2021-08-14 20:58] LABS: Internal QC Validated? YES +Cl - CLEAR BKGD; Pregnancy, Serum, hCG Quali. NEGATIVE Negative
[2021-08-14 21:07] LABS: AST(SGOT) 17 U/L (15-37); Alanine Aminotransfer ALT/SGPT 20 U/L (13-56); Albumin, Serum 4.1 g/dL (3.2-5.0); Alkaline Phosphatase 65 U/L (45-117); Anion Gap 3 (5-15); BUN 8 mg/dL (7-18); BUN/Creat Ratio 9.7 RATIO (10-20); Calcium,Total 9.7 mg/dL (8.5-10.1); Chloride 110 mmol/L (98-107); Creatinine, Serum 0.83 mg/dL (0.55-1.02); EST Glomerular Filtration Rate 92 mL/min (>60); Est Glom Filt Rate - Afr Amer 111 mL/min (>60); Estimated Creatinine Clearance 112.05 ml/min; Glucose 78 mg/dL (74-106); Protein, Total 8.1 g/dL (6.4-8.2); Sodium Level 141 mmol/L (136-145)
[2021-08-14] MEDS: 0.9% Normal Saline 1,000 ML 1000 ML IV (21:42)
[2021-08-14] MEDS: Morphine 4 MG/ML Syringe IV (21:43)
[2021-08-14] MEDS: Ondansetron 4 MG/2 ML Vial IV (21:43)
[2021-08-14 22:06] LABS: Bacteria 0 SEEN /hpf (None Seen); Mucous, Urine 0 SEEN /hpf (<or=2+); Red Blood Cells-Urine 0 SEEN /hpf (0-5); White Blood Cells 0 SEEN /hpf (0-5)
[2021-08-14 22:13] LABS: Color, Urine Yellow (Yellow); Glucose, Dipstick Normal (Normal); Ketone-Dipstick Negative (Negative); Leukocyte Esterase-Dipstick 25 /ul (Negative); Nitrite-Dipstick Negative (Negative); Occult Blood-Urine Negative /ul (Negative); Protein-Dipstick Negative (Negative); Urine Bilirubin Dipstick Negative (Negative); Urine Clarity Clear (Clear); Urine Urobilinogen Normal (Normal)
[2021-08-14 22:20] VITALS: BP 127/80; PULSE 64; RESP 18; TEMP 36.7; O2SAT 100
[2021-08-14 22:29] LABS: Squamous Epithelial Cells - UA 0-5 SEEN /hpf (5-10)
== END 2021-08-14 23:20 | disposition home or self-care (01) ==
PROVIDERS: Emergency Provider Emergency Medicine; PCP Pediatrics; Visit Provider Emergency Medicine
DX: R10.13 Epigastric pain (principal); F31.9 Bipolar disorder, unspecified; F17.210 Nicotine dependence, cigarettes, uncomplicated; N92.6 Irregular menstruation, unspecified; R19.7 Diarrhea, unspecified
CPT/HCPCS: 74177; 80053; 81001; 84703; 85025; 96361; 96374; 96375; 99283; Q9967; A4216; J2405; J3490

== ENCOUNTER 2021-09-08 11:23 | Outpatient (CLI) | payer MEDICAID, SELFPAY ==
[2021-09-08 13:59] LABS: Erythrocyte Sedimentation Rate 20 mm/hr (0-30)
[2021-09-08 14:30] LABS: CRP 6.07 mg/L (0.0-3.0); Thyroid Stim Hormone (TSH) 1.47 uIU/mL (0.358-3.74)
[2021-09-12 12:00] LABS: Anti-Centromere B Ab <0.2 AI (0.0-0.9); Anti-Chromatin <0.2 AI (0.0-0.9); Anti-Jo <0.2 AI (0.0-0.9); Anti-Scleroderma-70 AB <0.2 AI (0.0-0.9); Endomysial Antibody IgA Negative (Negative); Immunoglobulin A 385 mg/dL (87-352); RNP Ab <0.2 AI (0.0-0.9); SJOGREN'S Anti-SS-A test < 0.2 AI (0.0-0.9); SJOGREN'S Anti-SS-B test < 0.2 AI (0.0-0.9); Smith Ab <0.2 AI (0.0-0.9)
[2021-09-12 13:18] LABS: Angiotensin Convert Enzyme 44 U/L (14-82); t-Transglutaminase IgA <2 U/mL (0-3)
[2021-09-12 15:48] LABS: Anti-dsDNA Ab 1 IU/mL (0-9)
== END 2021-09-08 23:59 | disposition home or self-care (01) ==
LOC: LAB 11:24
PROVIDERS: PCP Pediatrics; Referring Provider Nurse Practitioner Adult Health; Visit Provider Nurse Practitioner Adult Health
DX: K62.5 Hemorrhage of anus and rectum (principal); R19.8 Other specified symptoms and signs involving the digestive system and abdomen; Z83.79 Family history of other diseases of the digestive system
CPT/HCPCS: 36415; 82164; 82784; 83516; 84443; 85652; 86140; 86225; 86235; 86255

== ENCOUNTER 2022-04-04 17:23 | Emergency (ER) | payer MEDICAID, SELFPAY ==
[2022-04-04 17:24] VITALS: BP 134/90; PULSE 132; RESP 16; TEMP 36.4; O2SAT 98; BMI 25.1
--- NOTE | 2022-04-04 18:23 | EDS_ITS ---
HPI History of Present Illness Chief Complaint: Cellulitis Narrative Narrative: 21-year-old female here with concern for cellulitis. Patient is concerned for infection of right forearm. The patient states this been going on for last 3 days. States she does inject methamphetamine. She denies any chest pain, fever, back pain. Patient denies any saddle anesthesia, urinary tension, bowel or bladder incontinence, lower extremity weakness, fever or IV drug use, no recent spinal manipulation or surgery, no recent urinary catheterization. PFSH PFSH Medical History Alternating constipation and diarrhea Anxiety Bipolar 1 disorder Celiac disease Chronic abdominal pain Depression Eczema FH: Crohn's disease Loose, teeth Migraine headache PTSD (post-traumatic stress disorder) Rectal bleed Shortness of breath on exertion Shoulder pain Sleep apnea Smoker Wears glasses Home Medications sulfamethoxazole 800 mg-trimethoprim 160 mg tablet (Bactrim DS) 1 tab PO BID #20 tabs 04/04/22 [Rx Last Taken Unknown] sulfamethoxazole 800 mg-trimethoprim 160 mg tablet (Bactrim DS) 1 tab PO BID 7 days #14 tabs 04/04/22 [Rx Last Taken Unknown] Allergy/AdvReac Type Severity Reaction Status Date / Time ibuprofen [From Advil] AdvReac Swelling Verified 04/04/22 17:26 Family History Mother Asthma Diabetes Father Heart disease Hypertension Thyroid disorder Cancer Social History Smoking Status: Current every day smoker tobacco type: cigarettes Tobacco: How many years used: 9 alcohol intake: never ROS ROS ED ROS Narrative Constitutional: Denies fever HEENT: Denies sore throat Neck: Denies neck pain Cardiovascular: Denies chest pain, syncope Respiratory: Denies shortness of breath GI: Denies nausea vomiting or abdominal pain : Denies changes in urinary habits Musculoskeletal: Denies muscle or joint pain Neurologic: Denies numbness weakness or loss of sensation Skin positive for right forearm redness EXAM Physical Exam Narrative Exam Narrative: Nursing triage notes reviewed, Vital signs reviewed Constitutional: please see mdm HENT: MMM Eyes: Pupils equal round and reactive to light, Extraocular muscles intact Neck: No stridor, no JVD, full neck ROM Lungs: Clear to auscultation, No wheezing or rales. No increased work of breathing, no conversational dyspnea, no accessory muscle use, no nasal flaring. No respiratory distress noted Heart: Regular rate and rhythm, No murmurs, No rubs and No gallops, 2+ distal pulses (radial, femoral, posterior tibial) in all extremities Abdomen: Soft, there is no tenderness, rigidity, rebound or guarding, no obvious peritoneal signs, no palpable pulsatile abdominal masses, no auscultated abdominal bruit : No CVAT Extremities: No edema, compartments are soft, there is proximally 2 x 2 centimeter area of erythema noted to the right distal anterior forearm Neuro: No focal neurological deficits, cranial nerves II through XII intact, 5/5 strength in all extremities. Intact sensation to light touch in all extremities, 2+ reflexes bilateral patella dens. Normal gait. No ataxia. Skin: No crepitus or bullae noted, no obvious fluctuance or induration, noted ce llulitic changes to the right distal forearm Const Vital Signs: 04/04/22 17:24 04/04/22 18:56 Temperature 97.5 F L Temperature Source Temporal Pulse Rate 132 H Respiratory Rate 16 14 Blood Pressure 134/90 H Blood Pressure Mean 104 Pulse Ox 98 Oxygen Delivery Method Room Air MDM MDM MDM Narrative Medical decision making narrative: 21-year-old female here with right upper arm cellulitis in the setting of IV drug use. Patient was tachycardic, afebrile she is nontoxic-appearing. Exam without evidence of necrotizing fasciitis, abscess. We will treat the patient for cellulitis. Instructed patient to discontinue using drugs especially IV drugs. There is no stigmata on history or physical exam to suggest endocarditis or epidural abscess. Patient was given return precautions and follow-up instructions. Treatment and Re-Evaluation Narrative: Patient tolerated antibiotics well. She is appropriate for discharge. Discharge Plan Triage Chief Complaint: Cellulitis ED Provider: Tony Ferguson Dx/Rx/DC Orders Clinical Impression: Cellulitis Instructions: Cellulitis Dc Prescriptions: New sulfamethoxazole-trimethoprim [Bactrim DS] 800-160 mg tablet 1 tab PO BID Qty: 20 0RF sulfamethoxazole-trimethoprim [Bactrim DS] 800-160 mg tablet 1 tab PO BID 7 Days Qty: 14 0RF Primary Care Provider: Adria Bartlett Referrals: Adria Bartlett MD [Primary Care Provider] - Activity Restrictions/Additional Instructions: Please refrain from using IV drugs. Please take antibiotics as prescribed. Please return if cannot tolerate antibiotics by mouth or if your redness, pain progresses quickly Disposition Disposition: Home, Self Care Discharge Date/Time: 04/04/22 18:57
[2022-04-04] MEDS: Smz/Tmp Ds Tablet 1 TABLET PO (18:47)
[2022-04-04 18:56] VITALS: RESP 14
== END 2022-04-04 18:57 | disposition home or self-care (01) ==
PROVIDERS: Emergency Provider Emergency Medicine; PCP Pediatrics; Visit Provider Emergency Medicine
DX: L03.90 Cellulitis, unspecified (principal); F17.210 Nicotine dependence, cigarettes, uncomplicated
CPT/HCPCS: 99282

== ENCOUNTER 2022-06-13 16:04 | Emergency (ER) | payer MEDICAID, SELFPAY ==
[2022-06-13 16:05] VITALS: BP 153/104; PULSE 119; RESP 18; TEMP 35.9; O2SAT 93; BMI 25.1
--- NOTE | 2022-06-13 16:14 | EDS_ITS ---
HPI History of Present Illness Chief Complaint: Abscess Informant: patient Narrative Narrative: Patient presents with a swollen red draining area under her left armpit. She had a small lesion of her left forearm in early April she was seen for. But she never filled the antibiotics. That area have resolved. Patient currently is intoxicated on methamphetamines. She has a little trouble keeping on task. This does limit her history. I have to ask most questions multiple times to try to get consistency of her answers. She has a red swollen area under her left armpit that started about 5 days ago. It started draining about a day ago. She states her #1 concern is to wonder if this is MRSA. It does not sound like she has known history of MRSA in the past. But she is certainly at risk for it. Patient denies injecting in her armpit area. She states she actually has not injected methamphetamines for couple weeks. She has still used it but does not injection. She is currently under the influence. She denies immune issues. She denies diabetes. She denies any chronic medical conditions She denies any long-term medications prescribed She is allergic to ibuprofen but no antibiotics She denies surgeries. Lives independently and drug abuse history as above. Methamphetamines is drug of choice. [facility] Medical History Alternating constipation and diarrhea Anxiety Bipolar 1 disorder Celiac disease Chronic abdominal pain Depression Eczema FH: Crohn's disease Loose, teeth Migraine headache PTSD (post-traumatic stress disorder) Rectal bleed Shortness of breath on exertion Shoulder pain Sleep apnea Smoker Wears glasses Home Medications sulfamethoxazole 800 mg-trimethoprim 160 mg tablet (Bactrim DS) 1 tab PO BID #20 tabs 04/04/22 [Rx Last Taken Unknown] sulfamethoxazole 800 mg-trimethoprim 160 mg tablet (Bactrim DS) 1 tab PO BID 7 days #14 tabs 04/04/22 [Rx Last Taken Unknown] cephalexin 500 mg capsule 500 mg PO Q6 #40 caps 06/13/22 [Rx Last Taken Unknown] sulfamethoxazole 800 mg-trimethoprim 160 mg tablet (Bactrim DS) 1 tab PO BID #20 tabs 06/13/22 [Rx Last Taken Unknown] Allergy/AdvReac Type Severity Reaction Status Date / Time ibuprofen [From Advil] AdvReac Swelling Verified 06/13/22 16:05 Family History Mother Asthma Diabetes Father Heart disease Hypertension Thyroid disorder Cancer Social History Smoking Status: Current every day smoker tobacco type: cigarettes Tobacco: How many years used: 9 alcohol intake: never ROS ROS ED Constitutional Constitutional ED: Denies chills or fever(s) Eyes Eyes: Denies change in vision Cardiovascular Cardiovascular: Denies chest pain or palpitations Respiratory/Chest Respiratory/Chest: Denies cough or dyspnea Gastrointestinal Gastrointestinal: Denies diarrhea, nausea or vomiting Genitourinary Genitourinary ED: Denies dysuria Musculoskeletal Musculoskeletal: Denies arthralgias or myalgias Integumentary Reports abscess and rash Neurologic Neurologic: Denies paresthesias or weakness Psychiatric Psychiatric: Reports anxiety Endocrine Endocrinology: Denies polydipsia or polyuria Hematologic/Lymphatic Hematologic/Lymphatic: Denies easy bleeding, easy bruising or lymphadenopathy Allergic/Immunologic Allergic/Immunologic ED: Denies urticaria EXAM Physical Exam Narrative Exam Narrative: Patient is awake and alert. She sometimes has a little trouble focusing on questions and I have to ask twice but she is not at all disoriented. Mucous membranes seem minimally dry. No meningismus. Heart rate is about 105 but regular. I do not hear any murmurs. Peripheral pulses are equal and normal. I do not see [place] nodes or [place] lesions. Lungs are clear and there is no pain with deep breath. Abdomen soft completely nontender. There is no CVA tenderness. No peripheral edema. No diffuse rashes petechiae or erythema noted. Her left axilla does have what appears to be a abscess consistent with the timing. It is about 2 x 1-1/2 cm. It has a small hole in the middle that is draining some whitish-yellow purulent material. No bleeding. Const Vital Signs: 06/13/22 16:05 Temperature 96.7 F L Temperature Source Temporal Pulse Rate 119 H Respiratory Rate 18 Blood Pressure 153/104 H Blood Pressure Mean 120 Pulse Ox 93 Oxygen Delivery Method Room Air Positive well nourished and well developed General Appearance ED: well developed MDM MDM MDM Narrative Medical decision making narrative: Procedure note: Incision and drainage of abscess in left axilla: I discussed risk benefits and options with the patient. We also discussed not doing the drainage and just doing antibiotics and compresses. She agreed to proceed. The area was cleansed. We anesthetized it with 2 cc of 1% lidocaine locally. Good anesthesia was achieved. I made an incision extending the area that already had some drainage. We got a little pretty fair amount of purulent material out. I was able to express more. I then used forceps to break up loculations to open this up and was able to get some more out. We then irrigated it. I then also placed a wick to allow continued drainage. She tolerated this well. I explained care of this wound dressing and wick. I explained pulling this wick out about 3 days. We explained that it is still important to be on antibiotics. I will use dual therapy. We discussed reasons to return. Procedures Other Procedures Procedure(s): Incision and drainage as in MDM. Discharge Plan Triage Chief Complaint: Abscess ED Provider: Farhan Ramirez Dx/Rx/DC Orders Clinical Impression: Abscess of axilla, left, Encounter for incision and drainage procedure, Methamphetamine abuse Instructions: ED Abscess Incision And Drainage Prescriptions: New cephalexin [cephalexin] 500 mg capsule 500 mg PO Q6 Qty: 40 0RF sulfamethoxazole-trimethoprim [Bactrim DS] 800-160 mg tablet 1 tab PO BID Qty: 20 0RF No Action sulfamethoxazole-trimethoprim [Bactrim DS] 800-160 mg tablet 1 tab PO BID Qty: 20 0RF sulfamethoxazole-trimethoprim [Bactrim DS] 800-160 mg tablet 1 tab PO BID 7 Days Qty: 14 0RF Primary Care Provider: Adria Bartlett Referrals: Adria Bartlett MD [Primary Care Provider] - 3-5 Days if not improving Disposition Disposition: Home, Self Care
[2022-06-13] MEDS: Lidocaine 2% (20 ml mdv) 20 ML Vial INFILT (16:44)
[2022-06-13] MEDS: Smz/Tmp Ds Tablet 1 TABLET PO (17:35)
== END 2022-06-13 17:38 | disposition home or self-care (01) ==
PROVIDERS: Emergency Provider Emergency Medicine; PCP Pediatrics; Visit Provider Emergency Medicine
DX: L02.412 Cutaneous abscess of left axilla (principal); F15.10 Other stimulant abuse, uncomplicated; F31.9 Bipolar disorder, unspecified; Z60.2 Problems related to living alone; F17.210 Nicotine dependence, cigarettes, uncomplicated
CPT/HCPCS: 10060; 99283

== ENCOUNTER 2022-06-23 20:44 | Emergency (ER) | payer MEDICAID, SELFPAY ==
[2022-06-23 20:44] VITALS: BP 129/99; PULSE 100; RESP 16; TEMP 36.6; O2SAT 99; BMI 26.6
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
== END 2022-06-23 22:31 | disposition home or self-care (01) ==
PROVIDERS: Emergency Provider Emergency Medicine; PCP Pediatrics; Visit Provider Emergency Medicine
DX: Z63.8 Other specified problems related to primary support group (principal); F19.10 Other psychoactive substance abuse, uncomplicated; F31.9 Bipolar disorder, unspecified; K64.9 Unspecified hemorrhoids; F41.9 Anxiety disorder, unspecified; F17.210 Nicotine dependence, cigarettes, uncomplicated
CPT/HCPCS: 99282

== ENCOUNTER 2022-12-13 18:32 | Emergency (ER) | payer MEDICAID, SELFPAY ==
[2022-12-13 18:33] VITALS: BP 122/90; PULSE 91; RESP 16; TEMP 36.1; O2SAT 100; BMI 26.6
--- NOTE | 2022-12-13 18:41 | ED.RN ---
PT AMBULATED OUT OF DEPARTMENT. THIS NURSE ASKED IF SHE WAS LEAVING, SHE REPLIES YES YOU FUCKING BITCH AND LEFT.
== END 2022-12-13 18:41 | disposition left against medical advice (07) ==
LOC: ED 18:51
PROVIDERS: PCP Pediatrics
DX: F41.9 Anxiety disorder, unspecified (principal)
CPT/HCPCS: 99282

== ENCOUNTER 2022-12-13 20:09 | Emergency (ER) | payer MEDICAID, SELFPAY ==
[2022-12-13 20:11] VITALS: BP 115/85; PULSE 86; RESP 15; TEMP 36.2; O2SAT 99; BMI 26.6
--- NOTE | 2022-12-13 20:46 | EKG12_ITS ---
Test Reason : CP Blood Pressure : / mmHG Vent. Rate : 070 BPM Atrial Rate : 070 BPM P-R Int : 150 ms QRS Dur : 088 ms QT Int : 406 ms P-R-T Axes : 059 038 050 degrees QTc Int : 438 ms Normal sinus rhythm with sinus arrhythmia Normal ECG Confirmed by LUIS F SUNG, ANUJA ([id number]), news videotape editor BRITNEY LOPES ([id number]) on 12/14/2022 12:57:49 PM Referred By: Confirmed By:ANUJA KERNS MD
--- NOTE | 2022-12-13 20:58 | EX.ED.DYSGE1 ---
HPI History of Present Illness Chief Complaint: Anxiety Narrative Narrative: Patient presents with anxiety attack. Patient states that she had a panic attack earlier. She states this was related to a conversation but she does not want to talk about that. She denies suicidal homicidal thoughts. She evidently does methamphetamine but does not want to talk about that either. Apparently she was here earlier with similar complaint by EMS and left but has now come back. She does admit that she had palpitations and some chest pain with the episode but does not have it now. PFSH PFS Medical History Alternating constipation and diarrhea Anxiety Bipolar 1 disorder Celiac disease Chronic abdominal pain Depression Eczema FH: Crohn's disease Loose, teeth Migraine headache PTSD (post-traumatic stress disorder) Rectal bleed Shortness of breath on exertion Shoulder pain Sleep apnea Smoker Substance abuse Wears glasses Home Medications sulfamethoxazole 800 mg-trimethoprim 160 mg tablet (Bactrim DS) 1 tab PO BID #20 tabs 04/04/22 [Rx Last Taken Unknown] cephalexin 500 mg capsule 500 mg PO Q6 #40 caps 06/13/22 [Rx Last Taken Unknown] hydroxyzine pamoate 25 mg capsule 50 mg (2 x 25 mg) PO TID PRN PRN Anxiety #15 CAPSULES 12/13/22 [Rx Last Taken Unknown] Allergy/AdvReac Type Severity Reaction Status Date / Time No Known Allergies Allergy Verified 12/13/22 18:33 Family History Mother Asthma Diabetes Father Heart disease Hypertension Thyroid disorder Cancer Social History Smoking Status: Current every day smoker tobacco type: cigarettes Tobacco: How many years used: 9 alcohol intake: never ROS ROS ED Constitutional Constitutional ED: Denies chills or fever(s) Eyes Eyes: Denies change in vision Cardiovascular Cardiovascular: Reports chest pain and palpitations Respiratory/Chest Respiratory/Chest: Denies cough or dyspnea Gastrointestinal Gastrointestinal: Denies nausea or vomiting Genitourinary Genitourinary ED: Denies dysuria Musculoskeletal Musculoskeletal: Denies arthralgias Integumentary Denies rash Neurologic Neurologic: Denies headache(s) Psychiatric Psychiatric: Reports anxiety; Denies suicidal ideation or suicidal thoughts Hematologic/Lymphatic Hematologic/Lymphatic: Denies anemia Allergic/Immunologic Allergic/Immunologic ED: Denies urticaria EXAM Physical Exam Narrative Exam Narrative: Patient is awake and alert. She is sitting calmly on the bed when I see her. HEENT shows no trauma. Mucous membranes are moist. Eyes show no icterus Neck is supple no JVD or meningismus Lungs are clear bilaterally. Saturations are normal at 99% on room air showing no hypoxia. Heart is regular. No murmur gallop rub. Pulses are normal. No abdominal tenderness. Bowel sounds are normal. No suprapubic tenderness or CVA tenderness. No rashes noted. Neurologically she is awake alert and appropriate. She seems calm at this time although mildly distracted. Its not uncommon that I have to ask questions twice. But there is no flight of ideas. She specifically denies thoughts of hurting herself or anyone else. Const Vital Signs: 12/13/22 20:11 Temperature 97.2 F L Temperature Source Temporal Pulse Rate 86 Respiratory Rate 15 Blood Pressure 115/85 H Blood Pressure Mean 95 Pulse Ox 99 Oxygen Delivery Method Room Air MDM MDM MDM Narrative Medical decision making narrative: Patient is calm now. I will write for some hydroxyzine. The best treatment is avoidance of methamphetamines. I do not see indication for further blood work or imaging. EKG Initial EKG: Comments: Management interpretation the patient's EKG done for chest pain and palpitations during a presumed panic attack shows a normal sinus rhythm with rate at 70. No ventricular ectopy. No acute ST elevation or depression. [place] interval, QRS duration and QTc are normal. This is overall a normally the EKG other than mild sinus arrhythmia. Discharge Plan Triage Chief Complaint: Anxiety ED Provider: Farhan Ramirez Dx/Rx/DC Orders Clinical Impression: Panic attack, Methamphetamine use Instructions: ED Panic Attack Prescriptions: New hydroxyzine pamoate [hydroxyzine pamoate] 25 mg capsule 50 mg PO TID PRN PRN (Reason: Anxiety) Qty: 15 0RF No Action sulfamethoxazole-trimethoprim [Bactrim DS] 800-160 mg tablet 1 tab PO BID Qty: 20 0RF cephalexin [cephalexin] 500 mg capsule 500 mg PO Q6 Qty: 40 0RF Primary Care Provider: Adria Bartlett Referrals: Adria Bartlett MD [Primary Care Provider] - 3-5 Days if not improving Disposition Disposition: Home, Self Care
[2022-12-13 21:26] VITALS: RESP 18
[2022-12-13 21:27] VITALS: RESP 16
== END 2022-12-13 21:26 | disposition home or self-care (01) ==
LOC: ED 21:21
PROVIDERS: Emergency Provider Emergency Medicine; PCP Pediatrics; Visit Provider Emergency Medicine
DX: F41.0 Panic disorder [episodic paroxysmal anxiety] (principal); F15.99 Other stimulant use, unspecified with unspecified stimulant-induced disorder; F17.210 Nicotine dependence, cigarettes, uncomplicated
CPT/HCPCS: 93005; 99282

== ENCOUNTER 2023-04-11 15:04 | Emergency (ER) | payer MEDICAID, SELFPAY ==
[2023-04-11 15:04] VITALS: BP 139/98; PULSE 69; RESP 18; TEMP 36.2; O2SAT 99; BMI 26.6
[2023-04-11] MEDS: Lidocaine 1% (20 ml mdv) 20 ML Vial INFILT (16:25)
--- NOTE | 2023-04-11 16:26 | EX.ED.DYSGE1 ---
HPI History of Present Illness Chief Complaint: Abscess Informant: patient and family Narrative Narrative: And has an abscess on the right proximal forearm. She states started swelling about 5 days ago after she injected methamphetamine. She denies fevers chills nausea or vomiting. She has had these before. She has been on antibiotics before but does not know what kind. She denies allergies to any. She denies diabetes. She denies any other areas of redness or swelling. The area did start draining earlier. [facility] Medical History (Updated 04/11/23 @ 16:[address] Farhan Ramirez MD) Alternating constipation and diarrhea Anxiety Bipolar 1 disorder Celiac disease Chronic abdominal pain Depression Eczema FH: Crohn's disease Migraine headache PTSD (post-traumatic stress disorder) Rectal bleed Schizophrenia Shortness of breath on exertion Sleep apnea Smoker Substance abuse Wears glasses Home Medications sulfamethoxazole 800 mg-trimethoprim 160 mg tablet (Bactrim DS) 1 tab PO BID #20 tabs 04/04/22 [Rx Last Taken Unknown] cephalexin 500 mg capsule 500 mg PO Q6 #40 caps 06/13/22 [Rx Last Taken Unknown] hydroxyzine pamoate 25 mg capsule 50 mg (2 x 25 mg) PO TID PRN PRN Anxiety #15 CAPSULES 12/13/22 [Rx Last Taken Unknown] cephalexin 500 mg capsule 500 mg PO Q6 #40 CAPSULES 04/11/23 [Rx Last Taken Unknown] doxycycline monohydrate 100 mg capsule 100 mg PO BID #20 CAPSULES 04/11/23 [Rx Last Taken Unknown] Allergy/AdvReac Type Severity Reaction Status Date / Time No Known Allergies Allergy Verified 12/13/22 18:33 Family History Mother Asthma Diabetes Father Heart disease Hypertension Thyroid disorder Cancer Social History Smoking Status: Current every day smoker tobacco type: cigarettes Tobacco: How many years used: 9 alcohol intake: never ROS ROS ED Constitutional Constitutional ED: Denies chills, fever(s) or sweats ENT ENT ED: Denies rhinorrhea Cardiovascular Cardiovascular: Denies chest pain Respiratory/Chest Respiratory/Chest: Denies cough or dyspnea Gastrointestinal Gastrointestinal: Denies diarrhea, nausea or vomiting Musculoskeletal Musculoskeletal: Denies myalgias Integumentary Reports abscess Neurologic Neurologic: Denies headache(s) Hematologic/Lymphatic Hematologic/Lymphatic: Denies easy bleeding, easy bruising or lymphadenopathy EXAM Physical Exam Narrative Exam Narrative: General: Patient is awake alert nontoxic. HEENT: Moist mucous membranes. No sign of trauma. Neck is supple. Lungs are clear saturations are normal. Heart is regular. Peripheral pulses are intact. I hear no murmur at all after listening for fair period of time. Abdomen is nontender. Extremities do show a approximately 3 cm round swollen area on the right forearm but it has erythematous changes much larger around this. But there is no proximal lymphadenopathy. This area is fluctuant. There is a small area in the middle that is draining but I do not think it is draining adequately for the size of this lesion. Const Vital Signs: 04/11/23 15:04 Temperature 97.2 F L Temperature Source Temporal Pulse Rate 69 Respiratory Rate 18 Blood Pressure 139/98 H Blood Pressure Mean 111 Pulse Ox 99 Oxygen Delivery Method Room Air MDM MDM MDM Narrative Medical decision making narrative: Procedure: Incision and drainage of abscess: I discussed risk benefits and options with the patient and her mother. Patient is nervous but agreed to proceed. The area was cleansed. It was anesthetized with 1% lidocaine locally. Total of 4 cc was used. No epinephrine. I then used an 11 blade to make a 1 cm incision in the abscess. I had to go very shallow and I got good release with a large amount of purulent material. This was broken up in milk to empty fully. I then irrigated the abscess. We then placed quarter inch gauze in the area. I explained and showed the patient how to change dressings to keep the gauze in place. We discussed expected course and reasons to return. We will start on antibiotics. I did tell mom that this likely is MRSA because she was worried about that. Procedures Other Procedures Procedure(s): See MDM Discharge Plan Triage Chief Complaint: Abscess ED Provider: Farhan Ramirez Dx/Rx/DC Orders Clinical Impression: Status post incision and drainage, Methamphetamine abuse, Abscess of right forearm Instructions: ED Abscess Incision And Drainage Prescriptions: New doxycycline monohydrate 100 mg capsule 100 mg PO BID Qty: 20 0RF cephalexin [cephalexin] 500 mg capsule 500 mg PO Q6 Qty: 40 0RF No Action sulfamethoxazole-trimethoprim [Bactrim DS] 800-160 mg tablet 1 tab PO BID Qty: 20 0RF cephalexin [cephalexin] 500 mg capsule 500 mg PO Q6 Qty: 40 0RF hydroxyzine pamoate [hydroxyzine pamoate] 25 mg capsule 50 mg PO TID PRN PRN (Reason: Anxiety) Qty: 15 0RF Primary Care Provider: Care Physician,No Primary Referrals: [facility], [Med Staff - Pneumatic Press Hand] - 3-5 Days Care Physician,No Primary [Primary Care Provider] - Disposition Disposition: Home, Self Care
[2023-04-11] MEDS: Doxycycline 100 MG CAPSULE PO (16:44)
[2023-04-11] MEDS: Cephalexin 250 MG Capsule 500 MG PO (16:44)
== END 2023-04-11 16:49 | disposition home or self-care (01) ==
PROVIDERS: Emergency Provider Emergency Medicine; Visit Provider Emergency Medicine
DX: L02.413 Cutaneous abscess of right upper limb (principal); F15.10 Other stimulant abuse, uncomplicated; F17.210 Nicotine dependence, cigarettes, uncomplicated; F41.9 Anxiety disorder, unspecified; Z79.899 Other long term (current) drug therapy
CPT/HCPCS: 10060; 99283

== ENCOUNTER 2023-09-26 14:48 | Emergency (ER) | payer MEDICAID, SELFPAY ==
[2023-09-26 14:49] VITALS: BP 128/98; PULSE 100; RESP 14; TEMP 36.3; O2SAT 99; BMI 28.3
--- NOTE | 2023-09-26 15:25 | EKG12_ITS ---
Test Reason : MEDICAL CLEARANCE Blood Pressure : / mmHG Vent. Rate : 081 BPM Atrial Rate : 081 BPM P-R Int : 142 ms QRS Dur : 092 ms QT Int : 386 ms P-R-T Axes : 046 061 052 degrees QTc Int : 448 ms Normal sinus rhythm Normal ECG Confirmed by GUTIERREZ SUNG, CYNTHIA ([id number]), tape editor CASSIE BOSTON ([id number]) on 09/30/2023 10:33:56 AM Referred By: Confirmed By:SCOTT WHITLEY MD
--- NOTE | 2023-09-26 15:28 | EDS_ITS ---
HPI HPI - Psych History of Present Illness Chief Complaint: Mental Health Informant: patient and parent Narrative Narrative: Patient present secondary to medical clearance for psychiatric placement. She was court ordered [facility]. She was advised to come here for medical clearance. Patient does not need to wait here but reportedly [facility] will call them when a bed is available. Mother states patient has not been following through with her psychiatric evaluations or taking her medication. She does have a history of bipolar and schizophrenia. PFSH PFSH Medical History Alternating constipation and diarrhea Anxiety Bipolar 1 disorder Celiac disease Chronic abdominal pain Depression Eczema FH: Crohn's disease Migraine headache PTSD (post-traumatic stress disorder) Rectal bleed Schizophrenia Shortness of breath on exertion Sleep apnea Smoker Substance abuse Wears glasses Home Medications NK 09/26/23 [History Last Taken Unknown] Allergy/AdvReac Type Severity Reaction Status Date / Time No Known Allergies Allergy Verified 09/26/23 14:52 Family History Mother Asthma Diabetes Father Heart disease Hypertension Thyroid disorder Cancer Social History Smoking Status: Current every day smoker tobacco type: cigarettes Tobacco: How many years used: 9 alcohol intake: never ROS ROS ED ROS Narrative Patient answering limited questions, most of history provided by mother. Review of Systems ROS Unobtainable: due to mental condition Constitutional Constitutional ED: Denies fever(s) Eyes Eyes: Reports other Details: Ecchymosis beneath left eye ; Denies change in vision Cardiovascular Cardiovascular: Denies chest pain Respiratory/Chest Respiratory/Chest: Denies cough Gastrointestinal Gastrointestinal: Denies abdominal pain Neurologic Neurologic: Denies headache(s) Psychiatric Psychiatric: Denies suicidal ideation EXAM Physical Exam Const Vital Signs: 09/26/23 14:49 09/26/23 16:00 Temperature 97.3 F L Temperature Source Temporal Pulse Rate 100 100 Respiratory Rate 14 16 Blood Pressure 128/98 H 128/80 H Blood Pressure Mean 108 96 Pulse Ox 99 99 Oxygen Delivery Method Room Air Room Air Positive well nourished and well developed General Appearance ED: well developed HEENT Reports moist mucous membranes HEENT Narrative: Ecchymosis noted beneath left eye. No subconjunctival hemorrhage noted. Eyes PERRL and EOMs intact bilaterally Resp normal respiratory effort and clear to auscultation bilaterally Cardio Rate: regular rate Rhythm: regular rhythm GI non-tender Palpation: soft Extremity normal to inspection Neuro oriented x3 Neuro Narrative: Moves all 4 extremities. Psych Psych Narrative: Flat affect. Not answering many questions. MDM MDM MDM Narrative Medical decision making narrative: Lab work for medical clearance to [facility] is [facility]. Lab Data Attestation: I reviewed the patient's lab results. Labs: Laboratory Results - last 24 hr 09/26/23 09/26/23 09/26/23 15:42 16:00 16:44 WBC 5.2 RBC 4.91 Hgb 13.9 Hct 41.3 MCV 84.1 MCH 28.3 MCHC 33.7 RDW Std Deviation 37.2 RDW Coeff of Mervat 12.3 Plt Count 209 MPV 10.2 Immature Gran % (Auto) 0.200 Neut % (Auto) 47.3 Lymph % (Auto) 38.8 [place] % (Auto) 11.5 H Eos % (Auto) 1.2 Baso % (Auto) 1.0 Absolute Neuts (auto) 2.5 Absolute Lymphs (auto) 2.02 Nucleated RBC % 0 Sodium 140 Potassium 3.8 Chloride 107 Carbon Dioxide 27.0 Anion Gap 6 BUN 8 Creatinine 0.79 Estim Creat Clear Calc 130.43 Est GFR (MDRD) Af Amer 115 Est GFR (MDRD) Non-Af 95 BUN/Creatinine Ratio 10.1 Glucose 85 Calcium 8.8 Total Bilirubin 0.30 Direct Bilirubin 0.13 AST 19 ALT 23 Alkaline Phosphatase 65 Total Protein 7.5 Albumin 3.6 Globulin 3.9 Serum , Qual NEGATIVE Urine Opiates Screen NEGATIVE Urine Methadone Screen NEGATIVE Ur Barbiturates Screen NEGATIVE Ur Phencyclidine Scrn NEGATIVE Ur Amphetamines Screen POSITIVE H MDMA (Ecstasy) Screen POSITIVE H U Benzodiazepines Scrn NEGATIVE Urine Cocaine Screen NEGATIVE U Cannabinoids Screen POSITIVE H Ur Drug Screen Comment Ethyl Alcohol 4.0 EKG Initial EKG: Attestation: I personally reviewed and interpreted this EKG as follows: Interpretation: Sinus Rhythm (Sinus rhythm 81 bpm. No acute ischemia. QT c is 448.) Treatment and Re-Evaluation Narrative: CBC was a white count 5.2 with a hemoglobin of 13.9. Chemistry studies unremarkable. LFTs are normal and test is negative. Urine tox screen is positive for amphetamines, MDMA, and cannabinoids. EKG is sinus rhythm 81 bpm with normal QTc. EtOH is normal. I will ask charge nurse to fax all test results to [facility]. Patient be discharged and await phone call from [facility] when bed available. Discharge Plan Triage Chief Complaint: Mental Health ED Provider: aMrtha Aparicio Dx/Rx/DC Orders Clinical Impression: Medical clearance for psychiatric admission Prescriptions: No Action NK Primary Care Provider: Care Physician,No Primary Referrals: Care Physician,No Primary [Primary Care Provider] - Disposition Disposition: Home, Self Care
[2023-09-26 16:00] VITALS: BP 128/80; PULSE 100; RESP 16; O2SAT 99
[2023-09-26 16:07] LABS: Absolute Lymphocyte Count 2.02 X10^3/uL (0.83-4.51); Absolute Neutrophil Count 2.5 X10^3/uL (2.0-7.7); Basophil# 0.05 X10^3/uL; Eosinophil# 0.06 X10^3/uL; Eosinophils% 1.2 % (0-5); Hematocrit 41.3 % (37-47); Hemoglobin 13.9 g/dL (12.0-15.0); Lymphocyte # 2.02 X10^3/ul (0.83-4.51); Lymphocyte % 38.8 % (19-41); Mean Corp Hgb Conc 33.7 g/dL (32-36); Mean Corpuscular Hgb 28.3 pg (27.0-32.0); Mean Corpuscular Volume 84.1 fL (81-99); Mean Platelet Vol. 10.2 fl (6.2-12.0); Monocyte% 11.5 % (0-10); NRBC Flagged by Analyzer 0 % (0-5); Neutrophil # 2.47 X10^3/uL (2.7-7.7); Neutrophil % 47.3 % (47-70); Platelet Count 209 K/mm3 (150-450); RBC Distribution Width CV 12.3 % (11.6-14.6); RBC Distribution Width SD 37.2 fl (35.1-43.9); Red Blood Count 4.91 M/mm3 (4.2-5.4); White Blood Count 5.2 K/mm3 (4.4-11.0)
[2023-09-26 16:17] LABS: Internal QC Validated? YES +Cl - CLEAR BKGD; Pregnancy, Serum, hCG Quali. NEGATIVE Negative
[2023-09-26 16:22] LABS: Amphetamine Urine VISTA POSITIVE (<1000 ng/mL); Barbiturate Urine VISTA NEGATIVE (< 200 ng/mL); Benzodiazepine Urine VISTA NEGATIVE (< 200 ng/mL); Cocaine Urine VISTA NEGATIVE (< 300 ng/mL); Ecstacy Urine VISTA POSITIVE (< 500 ng/mL); Methadone Urine VISTA NEGATIVE (< 300 ng/mL); PCP Urine VISTA NEGATIVE (< 25 ng/mL); THC Urine VISTA POSITIVE (< 50 ng/mL); Vista UDS pH Range 6
[2023-09-26 16:24] LABS: AST(SGOT) 19 U/L (15-37); Alanine Aminotransfer ALT/SGPT 23 U/L (13-56); Albumin, Serum 3.6 g/dL (3.2-5.0); Alkaline Phosphatase 65 U/L (45-117); Anion Gap 6 (5-15); BUN 8 mg/dL (7-18); BUN/Creat Ratio 10.1 RATIO (10-20); Bilirubin, Direct 0.13 mg/dL (0.00-0.30); Calcium,Total 8.8 mg/dL (8.5-10.1); Chloride 107 mmol/L (98-107); Creatinine, Serum 0.79 mg/dL (0.55-1.02); EST Glomerular Filtration Rate 95 mL/min (>60); Est Glom Filt Rate - Afr Amer 115 mL/min (>60); Estimated Creatinine Clearance 130.43 ml/min; Globulin 3.9 g/dL (2.2-4.2); Glucose 85 mg/dL (74-106); Potassium 3.8 mmol/L (3.5-5.1); Protein, Total 7.5 g/dL (6.4-8.2); Sodium Level 140 mmol/L (136-145)
--- NOTE | 2023-09-26 18:03 | ED.RN ---
TEST RESULTS FAXED TO [facility] AT THIS TIME
[2023-09-26 18:04] VITALS: BP 124/77; PULSE 68; RESP 16; TEMP 36.4; O2SAT 99
== END 2023-09-26 18:05 | disposition home or self-care (01) ==
PROVIDERS: Emergency Provider Emergency Medicine; Visit Provider Emergency Medicine
DX: Z04.6 Encounter for general psychiatric examination, requested by authority (principal); F17.210 Nicotine dependence, cigarettes, uncomplicated
CPT/HCPCS: 36415; 80048; 80076; 80307; 80320; 84703; 85025; 93005; 99283; G0480